=== PATIENT | female | born 1950 | race Caucasian/White ===

== ENCOUNTER → 2016-09-15 | Outpatient (CLI) | payer BC ==
--- NOTE | 2016-09-16 11:11 | MM ---
Reason for exam: screening (asymptomatic). Last mammogram was performed 1 year and 3 months ago. History: Patient is postmenopausal. Right Mammotome Panel of the right breast, December 02, 2004. Physical Findings: A clinical breast exam by your physician is recommended on an annual basis and results should be correlated with mammographic findings. MG 3D Screening Mammo W/Cad Bilateral CC and MLO view(s) were taken. Prior study comparison: June 06, 2015, bilateral MG 3d screening mammo w/cad. May 30, 2013, bilateral digital screening mammo w/CAD. April 20, 2012, bilateral digital screening mammo w/CAD. There are scattered fibroglandular densities. Finding: There are a few typically benign round calcifications in the left breast. There is a chronic nodularity in the right breast. There is no discrete abnormality. ASSESSMENT: Benign, BI-RAD 2 RECOMMENDATION: Routine screening mammogram of both breasts in 1 year.
== END | disposition home or self-care (01) ==
LOC: RADMAMWWP 13:17
PROVIDERS: ATTEND Obstetrics & Gynecology
DX: Z12.31 Encounter for screening mammogram for malignant neoplasm of breast (principal)
CPT/HCPCS: 77063; G0202

== ENCOUNTER → 2017-02-12 | Outpatient (CLI) | payer BC ==
--- NOTE | 2017-02-12 15:16 | PN ---
PROGRESS NOTE DATE OF SERVICE: 02/12/2017 A 66-year-old lady has been followed in [facility] Center for treatment of obstructive sleep apnea-hypopnea syndrome. The patient continued to use her CPAP equipment successfully without significant problems. No snoring with the machine. She is receiving show supplies. [place] Sleepiness Scale today is 10. Sometimes cramps in her legs during the sleep. She has taken medication for that. I checked her CPAP unit. CPAP pressure is 8 cm of water. Ramp 15 minutes. Usage is every night for more than 4 hours, average 8.2 hours. Leak is only 6 L/minute which is normal range. Apnea-hypopnea index 4 which is normal range. MEDICATIONS: Triamterene, hydrochlorothiazide, gabapentin, baby aspirin, iron supplement, calcium supplement, vitamin D3, potassium supplement, tizanidine at bedtime for muscle problems. PHYSICAL EXAM: During physical exam, the patient is in no distress. BP 122/72, HR 60, RR 16, height 5 feet 7 inches, weight 176, BMI 27.5, temperature 97.8, oxygen saturation room air 98%. HEENT: PERRLA, EOMI. Evaluation of oropharynx showed extremely low position of soft palate. NECK: Supple. No JVD. Thyroid is not palpable. LUNGS: Clear to percussion and to auscultation. Good air exchange. No wheezing or rhonchi. HEART: S1, S2 regular. No murmurs, gallops or rubs. ABDOMEN: Soft and nontender. Bowel sounds are present. No organomegaly appreciated. EXTREMITIES: No cyanosis or clubbing. MOTIVATIONAL SPEAKER: Awake, alert and oriented x3. Cranial nerves II through VII intact. There is no fasciculation or atrophy noted. No focal deficits observed. IMPRESSION: 1. Moderate obstructive sleep apnea-hypopnea syndrome on control with CPAP at 8 cm of water. Patient demonstrated 100% compliance with treatment benefitting from treatment. 2. Hypertension. 3. Back problem. 4. Static nerve problems. 5. Some muscle cramps during the night on treatment with tizanidine. PLAN: 1. Continue treatment with CPAP every night for the whole night. 2. Watching weight. 3. Sleep hygiene with regular time in bed for at least 8 hours. 4. No driving in sleepiness. 5. We will continue to maintain prescriptions for all necessary supplies including mask, tube, filters. 6. Follow-up visit in 1 year or earlier if patient has any problems. Thank you very much for allowing me to participate in management of your patient. Sincerely, Heraclio Pink MD, PhD, FAASM Diplomat of [place] Board of Sleep Medicine, Sleep Medicine Board by [place] Board of Medical Specialties [place] Board of Internal Medicine Night Court Magistrate of [facility] [place] MMODL / IJN: [id number] /
== END | disposition home or self-care (01) ==
LOC: SLEEP 13:41
PROVIDERS: ATTEND Internal Medicine
DX: G47.33 Obstructive sleep apnea (adult) (pediatric) (principal); I10 Essential (primary) hypertension

== ENCOUNTER → 2017-09-17 | Outpatient (CLI) | payer BC ==
--- NOTE | 2017-09-17 15:34 | PN ---
PROGRESS NOTE DATE OF SERVICE: 66-year-old lady who has been followed in Sleep Center for treatment of obstructive sleep apnea-hypopnea syndrome. The patient continued to use her CPAP equipment every night without any significant problems. She working information about new usage of the machine on the telephone. [place] Sleepiness Scale today is 12. I checked her CPAP unit. CPAP pressure is 8 cm of water. For the last 6 months, usage is 100% of the time, 180/180 nights for more than 4 hours with average usage is 7.8 hours. Leak is 10 L/minute which is normal. Apnea-hypopnea index reading for the last 6 months 3.8. The patient's weight about 10 pounds down comparing with her weight during the last visit. MEDICATIONS: Triamterene, hydrochlorothiazide, gabapentin, baby aspirin, iron supplement, calcium supplement, vitamin D3, potassium supplement. REVIEW OF SYSTEMS: The patient does not offer any physical complaints. The patient denies any rashes or other skin problems. The patient does not report any joint pain, swelling, or restriction of movement. The patient denies any headaches, any visual problems, hearing loss, sore throat. Denies any pain on breathing, shortness of breath, cough, wheezing, hemoptysis, night sweats. The patient also denies chest pain or distress, palpitations, dyspnea, orthopnea, edema, history of hypertension, history of myocardial infarction. Denies nausea, vomiting, diarrhea, hematemesis, and melena. Denies hemorrhoids or ulcers. Denies any genitourinary problems. Does not report any history of seizures. PHYSICAL EXAMINATION: Patient in no distress. BP 148/81, HR 56, R 16. Weight around 165 pounds. Temperature 97.2, oxygen saturation on room air 97%. Oropharynx moderately low position of soft palate. Lungs Clear to auscultation bilaterally. Heart S1, S2 can be heard, no gallops, rubs, or murmurs. Abdomen: Soft, nontender, no organomegaly, bowel sounds are heard in all four quadrants. Extremities No cyanosis, clubbing, or edema, peripheral pulses are palpable. Cranial Nerves II to XII are intact. GAS APPLIANCE ADJUSTER There are no gross sensory or motor deficits, DTRS 2+ bilaterally. Musculoskeletal Muscle strength is symmetrical. IMPRESSION: 1. Obstructive sleep apnea-hypopnea syndrome, most on control with CPAP at 8 cm of water patient demonstrated 100% compliance with treatment benefitting from treatment. 2. Hypertension. 3. Back problems. 4. History of some muscle cramps during the sleep. The patient still occasionally has muscle cramps in the legs during the sleep. 5. History of sciatic nerve. 6. History of herniated disc in the low back. PLAN: 1. Patient will continue to use CPAP equipment every night for the whole night. 2. Prescription for all necessary CPAP supplies including mask, tube, filters. 3. Continue losing weight. 4. Sleep hygiene with regular time in bed for at least 8 hours. 5. No driving if feeling sleepiness. 6. Followup visit in 1 year. Thank you very much for allowing me to participate in management of your patient. Sincerely, Heraclio Pink MD, PhD, FAASM Diplomat of [place] [employer] Special[employer] [place] [employer] Medicine Clothing Supervisor of [facility] [place] MMODL / KASHN: [id number] /
== END | disposition home or self-care (01) ==
LOC: SLEEP 14:00
PROVIDERS: ATTEND Internal Medicine
DX: G47.33 Obstructive sleep apnea (adult) (pediatric) (principal); R25.2 Cramp and spasm; I10 Essential (primary) hypertension; Z99.89 Dependence on other enabling machines and devices; Z79.82 Long term (current) use of aspirin; Z79.899 Other long term (current) drug therapy; Z87.39 Personal history of other diseases of the musculoskeletal system and connective tissue

== ENCOUNTER → 2017-10-27 | Outpatient (CLI) | payer BC ==
--- NOTE | 2017-10-27 14:49 | BD ---
EXAMINATION TYPE: Axial Bone Density DATE OF EXAM: 10/27/2017 COMPARISON: NONE CLINICAL HISTORY: Postmenopausal female Height: 5 FT 6 1/4 IN Weight: 161 FRAX RISK QUESTIONS: Family History (Parent hip fracture): YES Secondary Osteoporosis: 3. Menopause before 45: YES RISK FACTORS HISTORY OF: Family History of Osteoporosis: YES Active: YES Postmenopausal woman: AGE 42 MEDICATIONS: Additional Medications: GABAPENTIN, BLOOD PRESSURE MEDS, Additional History: PT HAS HAD EPIDURAL INJ IN BACK EXAM MEASUREMENTS: Bone mineral densitometry was performed using the farmhopping System. Bone mineral density as measured about the Lumbar spine is: ----- L1-L4(G/cm2): 1.400 T Score Values are as follows: ----- L2: 0.2 ----- L3: 1.8 ----- L4: 4.9 ----- L1-L4: 1.8 Bone mineral density has: INCREASED 5.9 SINCE 2016 Bone mineral density about the R hip (g/cm2): 1.193 Bone mineral density about the L hip (g/cm2): 1.131 T Score values are as follows: -----R Neck: 1.1 -----L Neck: 0.7 -----R Total: 1.4 -----L Total: 1.4 Bone mineral density has: DECREASED -0.7 SINCE 2015 IMPRESSION: Normal (Values between +1 and -1 indicate normal bone mass). Consider repeating this study in 5 year s or sooner if there is some new clinical indication. NOTE: T-SCORE=SD OF THE YOUNG ADULT MEAN.
--- NOTE | 2017-10-29 12:02 | MM ---
Reason for exam: screening (asymptomatic). Last mammogram was performed 1 year and 1 month ago. History: Patient is postmenopausal. Right Mammotome Panel of the right breast, December 02, 2004. Physical Findings: A clinical breast exam by your physician is recommended on an annual basis and results should be correlated with mammographic findings. MG 3D Screening Mammo W/Cad Bilateral CC and MLO view(s) were taken. Prior study comparison: September 15, 2016, bilateral MG 3d screening mammo w/cad. June 06, 2015, bilateral MG 3d screening mammo w/cad. There are scattered fibroglandular densities. Asymmetric breast tissue in the right breast is stable. There is no discrete abnormality. ASSESSMENT: Negative, BI-RAD 1 RECOMMENDATION: Routine screening mammogram of both breasts in 1 year.
== END | disposition home or self-care (01) ==
LOC: RADMAMWWP 12:55
PROVIDERS: ATTEND Internal Medicine Geriatric Medicine
DX: Z12.31 Encounter for screening mammogram for malignant neoplasm of breast (principal); M81.0 Age-related osteoporosis without current pathological fracture
CPT/HCPCS: 77063; 77067; 77080

== ENCOUNTER → 2018-02-11 | Outpatient (CLI) | payer BC ==
--- NOTE | 2018-02-11 16:13 | PN ---
PROGRESS NOTE DATE OF SERVICE: 02/11/2018 This patient is a 67-year-old lady who has been followed in the sleep center for treatment of obstructive sleep apnea-hypopnea syndrome. Patient successfully continues to use her CPAP equipment. Sometimes she feels there is some leak from her nasal mask; otherwise feels okay. [place] Sleepiness Scale today is 6, which is normal. I checked her CPAP unit. CPAP pressure is 8 cm of water. Usage is in acceptable range, around 21 out of 30 nights for more than 4 hours for the last month and 79 out of 90 days for the last 3 months. Average usage for the last 3 months 7.1 hours. Leak is 70 L/minute, which is acceptable. Apnea-hypopnea index in the range of 3 for the last 3 months, which is normal. MEDICATIONS: 1. Triamterene. 2. Hydrochlorothiazide. 3. Gabapentin. 4. Baby aspirin. 5. Iron supplement. 6. Calcium supplement. 7. Vitamin D3. 8. Potassium supplement. PHYSICAL EXAMINATION: GENERAL: A pleasant lady in no distress. VITAL SIGNS: BP 124/65, HR 55, RR 12, height 5 feet 6-1/2 inches, weight 162.6, body mass index 25.7, temperature 98.1, oxygen saturation at room air 99%. HEENT: PERRLA, EOMI. Evaluation of oropharynx showed tongue protrudes midline; low position of soft palate. NECK: Supple. No JVD. Thyroid is not palpable. LUNGS: Clear to percussion and to auscultation. Good air exchange. No wheezing or rhonchi. HEART: S1, S2 regular. No murmurs, gallops or rubs. ABDOMEN: Soft and nontender. Bowel sounds are present. No organomegaly appreciated. EXTREMITIES : No clubbing or cyanosis. GAS METER MECHANIC: Awake, alert, and oriented X3. Cranial nerves 2 to 7 intact. There is no fasciculation or atrophy. noted. No focal deficits observed. IMPRESSION: 1. Obstructive sleep apnea-hypopnea syndrome. Patient demonstrated great compliance with treatment, benefitting from treatment. 2. Hypertension. 3. Back problems. 4. History of some muscle cramps; occasionally still has it. 5. History of sciatic nerve problem. 6. History of herniated disc in the low back. PLAN: 1. Patient will continue to use her CPAP equipment every night for the whole night with the same level of pressure. 2. We will maintain all necessary CPAP prescriptions, including nasal mask, tube, filters. 3. No driving if feeling any sleepiness. 4. Sleep hygiene with regular time in bed for at least 8 hours. 5. We will consider using a different nasal mask. 6. Follow-up visit in one year, earlier if patient has any problems. Thank you very much for allowing me to participate in the management of your patient. Sincerely, Sincerely, Heraclio Pink MD, PhD, FAASM Diplomat of [place] [employer] Specialties [place] Board of Internal Medicine Racing Car Driver of [facility] [place] MMODL / IJN: [id number] /
== END | disposition home or self-care (01) ==
LOC: SLEEP 13:30
PROVIDERS: ATTEND Internal Medicine
DX: G47.33 Obstructive sleep apnea (adult) (pediatric) (principal); I10 Essential (primary) hypertension; Z79.82 Long term (current) use of aspirin; Z79.899 Other long term (current) drug therapy; Z87.39 Personal history of other diseases of the musculoskeletal system and connective tissue

== ENCOUNTER → 2019-01-20 | Outpatient (CLI) | payer MEDICARE ==
--- NOTE | 2019-01-24 08:01 | MM ---
Reason for exam: screening (asymptomatic). Last mammogram was performed 1 year and 3 months ago. History: Patient is postmenopausal. MG stereo VAD BX RT of the right breast, December 02, 2004. MG discontinued stereo core RT of the right breast, December 02, 2004. Physical Findings: A clinical breast exam by your physician is recommended on an annual basis and results should be correlated with mammographic findings. MG 3D Screening Mammo W/Cad Bilateral CC and MLO view(s) were taken. Prior study comparison: October 27, 2017, bilateral MG 3d screening mammo w/cad. September 15, 2016, bilateral MG 3d screening mammo w/cad. There are scattered fibroglandular densities. There is a stable right middle depth lowr outer quadrant mass back to 2016. No suspicious abnormality. No significant changes when compared with prior studies. ASSESSMENT: Benign, BI-RAD 2 RECOMMENDATION: Routine screening mammogram of both breasts in 1 year.
== END | disposition home or self-care (01) ==
LOC: RADMAMWWP 08:16
PROVIDERS: ATTEND Internal Medicine Geriatric Medicine
DX: Z12.31 Encounter for screening mammogram for malignant neoplasm of breast (principal)
CPT/HCPCS: 77063; 77067

== ENCOUNTER → 2019-02-07 | Outpatient (CLI) | payer MEDICARE ==
[2019-02-07 15:33] LABS: HCT 39.5 % (34.0-46.0); HGB 12.7 gm/dL (11.4-16.0); MCH 29.8 pg (25.0-35.0); MCV 93.2 fL (80.0-100.0); Mean Platelet Volume 6.4; Platelet Count 326 k/uL (150-450); RBC 4.24 m/uL (3.80-5.40); RDW 12.9 % (11.5-15.5)
[2019-02-07 15:39] LABS: INR 0.9 (<1.2); Partial Thromboplastin Time 24.3 sec (22.0-30.0); Prothrombin Time 10.1 sec (9.0-12.0)
[2019-02-07 15:43] LABS: Albumin 4.6 g/dL (3.5-5.0); Calcium 10.2 mg/dL (8.4-10.2); Potassium 4.5 mmol/L (3.5-5.1); Total Bilirubin 0.4 mg/dL (0.2-1.3); Total Protein 7.8 g/dL (6.3-8.2)
[2019-02-07 16:07] LABS: Amorphous Sediment,Urine Rare /hpf; Appearance,Urine Clear (Clear); Bacteria,Urine Rare /hpf; Bilirubin,Urine Negative (Negative); Blood,Urine Moderate (Negative); Color,Urine Light Yellow; Glucose,Urine (UA) Negative (Negative); Ketones,Urine Negative (Negative); Leukocyte Esterase,Urine Trace (Negative); Mucus,Urine Occasional /hpf; Nitrite,Urine Negative (Negative); PH, Urine 7.5 (5.0-8.0); Protein,Urine Negative (Negative); RBC,Urine 62 /hpf (0-5); Specific Gravity,Urine 1.007 (1.001-1.035); Squamous Epithelial Cell,Urine 1 /hpf (0-4); Urobilinogen,Urine <2.0 mg/dL (<2.0); WBC,Urine 3 /hpf (0-5)
== END | disposition home or self-care (01) ==
LOC: LABPAT 14:36
PROVIDERS: ATTEND Orthopaedic Surgery
DX: Z01.812 Encounter for preprocedural laboratory examination (principal); M17.12 Unilateral primary osteoarthritis, left knee
CPT/HCPCS: 80053; 81001; 85027; 85610; 85730; 87070

== ENCOUNTER → 2019-02-08 | Outpatient (CLI) | payer MEDICARE ==
--- NOTE | 2019-02-08 15:58 | US ---
EXAMINATION TYPE: US kidneys/renal and bladder DATE OF EXAM: 02/08/2019 COMPARISON: NONE CLINICAL HISTORY: R31.9 HEMATURIA. EXAM MEASUREMENTS: Right Kidney: 11.5 x 4.9 x 5.4 cm Left Kidney: 12.1 x 5.3 x 5.2 cm Right Kidney: no obvious masses or hydronephrosis Left Kidney: no obvious mass or hydronephrosis Bladder: wnl Bilateral Jets seen: No There is no evidence for hydronephrosis at this point in time. No nephrolithiasis is seen. No kartik s are identified. The urinary bladder is anechoic. Bilateral ureteral jets are not seen. IMPRESSION: No hydronephrosis, nephrolithiasis, nor suspicious renal mass.
== END | disposition home or self-care (01) ==
LOC: RADUSWWP 14:07
PROVIDERS: ATTEND Internal Medicine Geriatric Medicine
DX: R31.9 Hematuria, unspecified (principal)
CPT/HCPCS: 76770

== ENCOUNTER → 2019-02-10 | Outpatient (CLI) | payer MEDICARE ==
--- NOTE | 2019-02-10 15:06 | SFUN ---
SLEEP CENTER FOLLOW UP NOTE DATE OF SERVICE: 02/10/2019 A 68-year-old lady who has been followed in the Sleep Center for treatment of obstructive sleep apnea-hypopnea syndrome. Patient continued to use her CPAP equipment every night for the whole night. Recently, sometimes wakes up in the middle of the night and has difficulties to fall asleep again. I checked her CPAP unit, pressure is 8 cm of water. Patient is using equipment every night, average usage 6.9 hours per night. Leak 8 L/minutes which is normal. Apnea- hypopnea index is 2.3, which is absolutely normal range. [place] Sleepiness Scale today is 9. MEDICATIONS: Cassaidine, [QAMARKER], hydrochlorothiazide, gabapentin, iron supplement, calcium supplement, vitamin D3, potassium supplement. PHYSICAL EXAM: Patient in no distress. BP 122/77, HR 62, RR 16, height 5, 6-1/2, weight 162, body mass index 25.7, temperature 98.0, oxygen saturation at room air 99%. OROPHARYNX: Low position of soft palate, Mallampati 3. Neck Supple, no JVD. Thyroid is not palpable. LUNGS Clear to percussion and to auscultation. Good air exchange. No wheezing or rhonchi. HEART S1, S2 regular. No murmurs, gallops, or rubs. ABDOMEN Soft and nontender. Bowel sounds are present. No organomegaly appreciated. EXTREMITIES No clubbing or cyanosis. REPORT MANAGER Awake, alert, and oriented X3. Cranial nerves 2 to 7 intact. There is no fasciculation or atrophy. noted. No focal deficits observed. IMPRESSION: 1. Obstructive sleep apnea-hypopnea syndrome. Patient demonstrated 100% compliance with treatment benefitting from treatment. 2. Psychophysiological insomnia. 3. Hypertension. 4. Back problems. 5. Sometimes episodes of muscle cramps. 6. History of sciatic nerve problems. 7. History of herniated disk in the low back. 8. Status post left knee arthroscopic surgery. The patient is preparing for total left knee replacement. PLAN: 1. Patient will continue to use CPAP equipment every night for the whole night. 2. I discussed with the patient usage of some psychological techniques for treatment of insomnia including stimulus control, paradoxical intention, no watching clock. 3. Watching weight. 4. No driving if feeling sleepiness. 5. I will maintain all necessary prescriptions for CPAP supplies including mask, tube, filters. Thank you very much for allowing me to participate in the management of your patient. Sincerely, Heraclio Pink MD, PhD, FAASM Diplomat of [place] [employer] Special[employer] [place] [employer] Coroner'S Juror of [facility] [place] [email or web address] / ANNY: [id number] /
== END | disposition home or self-care (01) ==
LOC: SLEEP 13:19
PROVIDERS: ATTEND Internal Medicine
DX: G47.33 Obstructive sleep apnea (adult) (pediatric) (principal); I10 Essential (primary) hypertension; M53.9 Dorsopathy, unspecified; R25.2 Cramp and spasm; Z86.69 Personal history of other diseases of the nervous system and sense organs; Z87.39 Personal history of other diseases of the musculoskeletal system and connective tissue; Z96.652 Presence of left artificial knee joint; Z99.89 Dependence on other enabling machines and devices

== ENCOUNTER 2019-02-21 06:17 | Inpatient (IN) | payer BC, MEDICARE ==
[~2019-02-21 06:17] MED LIST: LIDOCAINE 1% 20 ML VIAL (10MG/ML) FOR IV START INTRADERMA PRN; MIDAZOLAM 2 MG/2 ML VIAL IV PRN; fentaNYL (PF) 50 MCG/ML 2 ML AMP IV PRN
[2019-02-21] MEDS: LACTATED RINGERS 1,000 ML IV SCH ×5 (06:57→20:24)
[2019-02-21] MEDS ORDERED: LIDOCAINE 1% 20 ML VIAL (10MG/ML) FOR IV START INTRADERMA ONE (06:57)
[2019-02-21] MEDS ORDERED: MELOXICAM 7.5 MG TAB PO ONE (07:00)
[2019-02-21] MEDS ORDERED: ONDANSETRON 4 MG/2 ML VIAL IVP ONE (07:00)
[2019-02-21] MEDS ORDERED: TRANEXAMIC ACID 1,000 MG in SODIUM CHLORIDE 0.9% 100 ML IVPB ONE ×4 (07:00)
[2019-02-21] MEDS ORDERED: MIDAZOLAM PF (FBP) 2 MG/2 ML VIAL IV ONE (07:11)
[2019-02-21] MEDS ORDERED: SODIUM CHLORIDE 0.9% 100 ML BAG ONE (07:47)
[2019-02-21] MEDS ORDERED: MIDAZOLAM 2 MG/2 ML VIAL ONE (07:47)
[2019-02-21] MEDS ORDERED: fentaNYL (PF) 50 MCG/ML 2 ML AMP ONE (07:47)
[2019-02-21] MEDS ORDERED: TRANEXAMIC ACID 1,000 MG/10 ML VIAL ONE (07:47)
[2019-02-21] MEDS ORDERED: ePHEDrine SULFATE/0.9% NACL/PF 50 MG/5 ML SYRINGE IV ONE (07:47)
[2019-02-21] MEDS ORDERED: PROPOFOL 10 MG/ML 20 ML VIAL IV ONE (07:47)
[2019-02-21] MEDS: ROPIVACAINE 246.25 MG, EPINEPHrine 0.5 MG, KETOROLAC 30 MG, cloNIDine HCL/PF 80 MCG, WA... MISCELLANE ONE ×10 (08:24→09:12)
[2019-02-21] MEDS ORDERED: ROPIVACAINE 0.2%-NS ON-Q PUMP 1,090 MG, EMPTY PAIN BALL 1 EACH MISCELLANE PRN (08:40)
--- NOTE | 2019-02-21 08:41 | P.ANPRN ---
Procedure Note - Anesthesia - Nerve Block Performed Left Adductor Canal Infusion Time Out Performed: Yes Date of Procedure: 02/21/19 Procedure Start Time: :12 Procedure Stop Time: : Location of Patient Procedure: PreOp Indication: Acute Post-Operative Pain, Requested by Surgeon Sedation Type: Sedate with meaningful contact maintained Preparation: Sterile Prep, Sterile Dressing Position: Supine Catheter: Indwelling Needle Types: Pajunk Needle Gauge: 21 Ultrasound used to visualize needle placement: Yes Ultrasound used to observe medication spread: Yes Blood Aspirated: No Pain Paresthesia on Injection Noted: No Resistance on Injection: Normal Image Stored and Saved: Yes Events: Uneventful and Well Tolerated (ropi .5% 20cc)
--- NOTE | 2019-02-21 09:44 | P.OP ---
Date of Procedure: 02/21/19 Procedure(s) Performed: PREOPERATIVE DIAGNOSIS: Left knee severe osteoarthritis with genu varum POSTOPERATIVE DIAGNOSIS: Left knee severe osteoarthritis with genu varum OPERATION: Left knee cemented total replacement arthroplasty. ANESTHESIA: Spinal ESTIMATED BLOOD LOSS: 100 ml. DEPUTY [place] [employer]: Beata Art PA-C (assistance with: patient positioning, retraction, exposure, hemostasis, leg positioning, implantation, irrigation, closure, dressing) COMPLICATIONS: None apparent. COMPONENTS IMPLANTED: Journey II total knee system from [employer] INDICATIONS: Melvina is a 68 year old female with a history of left knee osteoarthritis. She has previously undergone arthroscopic partial meniscectomy and chondroplasty with no significant benefit. The patient's knee is end-stage, and other conservative management has failed. The operation of knee replacement has been discussed at length in the office, as well as potential risks and complications. These are inclusive of, but not limited to: bleeding, infection, scarring, discomfort, blood vessel and nerve damage, need for further surgery, failure to relieve symptoms, persistence, recurrence, or worsening of problems, loosening, dislocation, wear, blood clot, pulmonary embolism, , gait dysfunction, stiffness, and other risks as discussed in the office. The patient elects to proceed and the consent form has been signed. PROCEDURE: The patient was taken to the operating room and positioned on the operating room table in the supine position. Anesthesia was initiated. Care was taken to make sure that all pressure points were adequately padded. The operative lower extremity was prepped and draped in the usual aseptic fashion using ChloraPrep. Ioban drape was used for the case and the patient received intravenous antibiotics within one hour of the incision. A pneumotourniquet and leg portillo were used for the case. The limb was exsanguinated with an Esmarch bandage and the tourniquet was inflated to 350 mmHg. Time-out was called confirming the patient's identity, side, procedure and administration of antibiotics and tranexamic acid. The incision was then created midline directly over the left knee, carried down through skin and into the subcutaneous tissues and down to fascia. Full thickness subcutaneous medial flap was developed. Medial parapatellar arthrotomy was performed and the interior of the knee was inspected. There was end-stage osteoarthritis of the knee with a mild to moderate genu varum type deformity. The fat pad was excised and proximal medial release on the tibia was completed using meticulous dissection and a curved osteotome. The anterior cruciate ligament was taken down. Note was made of significant attrition of the anterior and significant degenerative appearance of the cruciate ligaments. The exposure was excellent. The knee was flexed 90 degrees and the patella was everted. The [employer] pre- made distal cutting block was attached and pinned into position. The planned cut was analyzed visually and found to be satisfactory without the need for any adjustment. The oscillating saw was then used to make the distal femoral cut. This cut was confirmed to be flat with the flat end of an osteotome. The retractors were placed around the tibia and the tibial surface was addressed. The [employer] pre-made guide was placed onto the exposed tibial surface and pinned into position to david the rotational alignment. The alignment of the guide was checked for depth of plannned resection, slope, and varus valgus. Guide was confirmed to be in good position and the tibial cut was then created with protection of the posterior neurovascular structures and the collateral ligaments. The tibial cut surface was removed and sized. Femoral sizing was then accomplished using posterior referencing. Care was taken to analyze the posterior condyles for signs of deficiency or severe wear, and adjustments to the guide were made, as appropriate. 3 degree external rotation pins were placed relative to Luquillo's line. The cutting jig for the femur was applied to these pins. The planned cuts were further analyzed prior to performing them with the oscillating saw. No femoral notching was produced. Bone fragments were removed and the cut surfaces were finished, as necessary, with a reciprocating saw. Spacer block technique was then used to confirm that the flexion and extension gaps were equal. Soft tissue releases and adjustment of the tibial and/or femoral cuts were made, as necessary, until the gaps were equal. This included release of the posterior cruciate ligament, which was excessively tight in this patient. The femur was then further finished for a posterior cruciate ligament substituting component. Patellar resurfacing was performed using a reamer. The size of the required patellar component was estimated and the patellar surface was then reamed down to a residual thickness which would recreate the tribal thickness with the component. The exact placement of the patellar component was adjusted for position based on preoperative x-rays and intraoperative findings. Prior to placing trial components, anesthetic solution consisting of ropivicaine with epinephrine, ketorolac, and clonidine was injected carefully and methodically in a grid pattern using aspiration technique into the soft tissue around the knee circumferentially, starting with the deeper tissues first and progressing to fascia, and then finally the skin/subcutaneous tissue. Particular care was taken when injecting the posterior capsule. The trial components were inserted. The tibial tray was allowed to self center and the patella was noted to track very well. The position of the tibial component was marked and noted to be nearly exactly aligned with the pre-drilled holes from the [employer] guide. The tibia was then finished for a stemmed tibial component. Cement was mixed on the back table and applied to the final components. Trial components were removed and the cut surfaces of the bone were pulse lavaged thoroughly and dried. Cement was then applied to the tibial surface and pressurized into the surface using finger pressurization technique. The tibial component was then applied and excess cement was removed after it was impacted securely and noted to be flush with the cut surface. In similar fashion, the cement was applied to the cut femoral surface, pressurized in using finger pressurization and the component was impacted into place. Excess cement was removed. The polyethylene spacer was then implanted and locked into position. The patellar component was then applied in similar technique and a patellar clamp was used to hold the patella in place as the cement hardened. Once the cement had fully hardened, the knee was reinspected. Any other cement extrusion was removed and final kinematic testing showed range of motion from 0 to 130 degrees with excellent stability, both medially and laterally and appropriate alignment of the leg. Patellar tracking was excellent. The knee was then thoroughly pulse lavaged with normal saline. The tourniquet was deflated and hemostasis was obtained with electrocautery and IV tranexamic acid, 1 g given at the start of the operation and 1 g at the start of closure. Closure was with #2 Ethibond in the fascia/capsule and supplemented with #2 Quill, 2-0 Vicryl suture was used for the subcutaneous tissues and 3-0 Quill for the skin. Dermabond/Steri-Strips were then applied. A lightly compressive dressing was applied using Webril and an Jens wrap. The patient was then transferred to stretcher and taken to the recovery room in stable condition. Sponge and needle counts were correct.
[2019-02-21] MEDS ORDERED: BISACODYL 10 MG SUPP RECTAL PRN (09:54)
[2019-02-21] MEDS ORDERED: HYDROmorphone 0.5 MG/0.5 ML SYRINGE IVP PRN ×3 (09:54)
[2019-02-21] MEDS ORDERED: MAGNESIUM HYDROXIDE 2,400 MG/10 ML CUP PO PRN (09:54)
[2019-02-21] MEDS ORDERED: NALOXONE 0.4 MG/ML 1 ML VIAL IV PRN (09:54)
[2019-02-21] MEDS ORDERED: NA PHOS,M-B/NA PHOS,DI-BA 133 ML ENEMA RECTAL PRN (09:54)
[2019-02-21] MEDS ORDERED: LACTATED RINGERS 1,000 ML IV ONE ×2 (10:14)
--- NOTE | 2019-02-21 10:45 | XR ---
EXAMINATION TYPE: XR knee limited LT DATE OF EXAM: 02/21/2019 CLINICAL HISTORY: Left knee pain and arthritis status post total knee replacement. TECHNIQUE: Portable AP and crosstable lateral views of the left knee are obtained immediately postop eratively. COMPARISON: None FINDINGS: Metallic hardware from total left knee arthroplasty is seen and appears satisfactory in al ignment and position. There is evidence of recent surgery with diffuse subcutaneous gas and soft tis preet swelling noted. IMPRESSION: METALLIC HARDWARE FROM TOTAL LEFT KNEE ARTHROPLASTY IS SATISFACTORY IN ALIGNMENT.
[2019-02-21 12:03] VITALS: BMI 26.2
--- NOTE | 2019-02-21 12:52 | P.CONS ---
History of Present Illness - Reason for Consult Consult date: 02/21/19 Medical management - History of Present Illness This is a 68-year-old female patient of Dr. Carrion with past medical history of hypertension and obstructive sleep apnea on CPAP. Patient has been brought into the hospital under the care of Dr. Severino is post left total knee arthroplasty. Patient is seen in the immediate postop period. Pain is currently controlled. Q-pump is in place for pain management. Blood pressure is on the low side and Dyazide will be held for today. This may be resumed tomorrow depending on blood pressures. Patient denies any lightheadedness, dizziness, chest pain or shortness of breath. No nausea or vomiting. Review of Systems Constitutional: Reports lethargy, Denies chills, Denies fatigue, Denies fever, Denies poor appetite, Denies weakness Eyes: denies blurred vision, denies pain Ears, nose, mouth and throat: Denies headache, Denies nasal congestion, Denies nasal discharge, Denies sore throat, Denies vertigo Cardiovascular: Denies chest pain, Denies decreased exercise tolerance, Denies dyspnea on exertion, Denies edema, Denies leg edema, Denies lightheadedness, Denies shortness of breath, Denies syncope Respiratory: Denies cough, Denies cough with sputum, Denies dyspnea, Denies excessive sputum, Denies hemoptysis, Denies home oxygen, Denies wheezing Gastrointestinal: Denies abdominal pain, Denies diarrhea, Denies loss of appetite, Denies nausea, Denies vomiting Genitourinary: Denies dysuria, Denies hematuria, Denies urgency, Denies urinary frequency Musculoskeletal: Denies frequent falls, Denies gait dysfunction, Denies muscle weakness, Denies myalgias Musculoskeletal: left: knee pain Integumentary: Reports wounds, Denies pruritus, Denies rash Neurological: Denies change in mentation, Denies change in speech, Denies numbness, Denies seizures, Denies weakness Psychiatric: Denies anxiety, Denies depression Endocrine: Denies fatigue, Denies weight change Past Medical History Past Medical History: Hypertension, Sleep Apnea/CPAP/BIPAP Additional Past Medical History / Comment(s): uses cpap machine History of Any Multi-Drug Resistant Organisms: None Reported Past Surgical History: Appendectomy, Section, Orthopedic Surgery, Tubal Ligation Additional Past Surgical History / Comment(s): cyst on lt ovary removed, bunionectomy,shoulder surgery, arthroscopy knee, epidurals,rhizotomy back, dental implants, bone graph surgery , left total knee arthroplasty Past Anesthesia/Blood Transfusion Reactions: No Reported Reaction Smoking Status: Never smoker Additional Past Alcohol Use History / Comment(s): Patient is a lifelong nonsmoker, no marijuana use, no illicit drug use. Patient drinks alcohol socially. She lives at home with her . - Past Family History Father Additional Family Medical History / Comment(s): Father at age 90 from Parkinson's and Alzheimer's dementia. Sister(s) Family Medical History: Cancer Additional Family Medical History / Comment(s): lymphoma. Patient has 3 sisters and one has diabetes. Mother Additional Family Medical History / Comment(s): Mother at age 91 from Alzheimer's dementia. Brother(s) Additional Family Medical History / Comment(s): Patient has 2 brothers and one has diabetes. Patient has 2 children with no major medical problems. Medications and Allergies Home Medications Medication Instructions Recorded Confirmed Type Calcium Carbonate [Calcium] 600 mg PO DAILY 02/11/19 02/21/19 History Chlorhexidine Gluconate [Peridex] 15 ml PO BID 02/11/19 02/21/19 History Cholecalciferol (Vitamin D3) 2,000 unit PO DAILY 02/11/19 02/21/19 History [Vitamin D3] Diclofenac Sodium [Pennsaid] 1 spray TOPICAL DAILY 02/11/19 02/21/19 History Ferrous Sulfate [Feosol] 325 mg PO DAILY 02/11/19 02/21/19 History Gabapentin [Neurontin] 1 - 2 mg PO TID 02/11/19 02/21/19 History Multivitamins, Thera [Multivitamin 1 tab PO DAILY 02/11/19 02/21/19 History (formulary)] Potassium 99 mg PO DAILY 02/11/19 02/21/19 History Triamcinolone 0.1% Cream [Kenalog 1 applic TOPICAL DAILY 02/11/19 02/21/19 History 0.1% Cream] Triamterene-Hctz 37.5-25Mg 1 cap PO DAILY 02/11/19 02/21/19 History [Dyazide 37.5-25 Capsule] Turmeric Root Extract [Turmeric] 500 mg PO DAILY 02/11/19 02/21/19 History tiZANidine [Zanaflex] 1 - 2 tab PO HS 02/11/19 02/21/19 History Aspirin 325 mg PO BID #1 tab 02/21/19 Rx HYDROcodone/APAP 7.5-325MG [[place] 1 - 2 tab PO Q4-6H PRN #40 tab 02/21/19 Rx 7.5-325] Sennosides-Docusate Sodium 1 tab PO BID #60 tablet 02/21/19 Rx [Senokot-S] Allergies Allergy/AdvReac Type Severity Reaction Status Date / Time No Known Allergies Allergy Verified 02/21/19 06:48 Physical Exam Vitals: Vital Signs Temp Pulse Resp BP Pulse Ox 02/21/19 11:10 98.2 F 68 16 101/65 93 L 02/21/19 10:35 64 16 104/55 94 L 02/21/19 10:20 64 16 107/57 93 L 02/21/19 10:05 68 16 109/59 94 L 02/21/19 09:50 97.4 F L 70 12 118/59 95 02/21/19 06:36 97.9 F 57 L 16 144/66 97 Intake and Output 02/20/19 02/21/19 02/21/19 22:59 06:59 14:59 Intake Total 400 895 Output Total 100 Balance 400 795 Intake: IV 400 895 Output: Estimated Blood Loss 100 Gen: This is a 68-year-old female. Patient is in bed and appears to be comfortable and in no acute distress. HEENT: Head is atraumatic, normocephalic. Pupils equal, round. Sclerae is anicteric. NECK: Supple. No JVD. No lymphadenopathy. No thyromegaly. LUNGS: Clear to auscultation. No wheezes or rhonchi. No intercostal ret ractions. HEART: Regular rate and rhythm. No murmur. ABDOMEN: Soft. Bowel sounds are present. No masses. No tenderness. EXTREMITIES: No pedal edema. No calf tenderness. Large dressing in place to the left knee. NEUROLOGICAL: Patient is awake, alert and oriented x3. Cranial nerves 2 through 12 are grossly intact. Assessment and Plan Plan: 1. Osteoarthritis status post left knee arthroplasty, postop day #0. Continue current pain management, incentive spirometry to reduce incidence of atelectasis and hospital-acquired pneumonia. DVT prophylaxis per orthopedics. 2. Hypertension. Blood pressure is currently on the lower side and Dyazide will be held. 3. Obstructive sleep apnea on CPAP at bedtime. 4. GI prophylaxis. Pepcid. Discharge plan: home Impression and plan of care have been directed as dictated by the signing physician. Melvina Baldwin nurse practitioner acting as scribe for signing physician.
[2019-02-21] MEDS ORDERED: HYDROcodone/APAP 5-325MG 1 EACH TAB PO PRN ×2 (16:44)
[2019-02-21] MEDS: ASPIRIN 325 MG TAB PO SCH (20:24)
[2019-02-21] MEDS: SENNOSIDES-DOCUSATE SODIUM 1 EACH TAB PO SCH (20:24)
[2019-02-21] MEDS: GABAPENTIN 400 MG CAP PO SCH (21:12)
[2019-02-21] MEDS ORDERED: TEMAZEPAM 15 MG CAP PO PRN (22:00)
[2019-02-22 06:27] LABS: Basophils % (A) 0 %; Eosinophils # (A) 0.2 k/uL (0-0.7); Eosinophils % (A) 3 %; HCT 34.3 % (34.0-46.0); HGB 10.8 gm/dL (11.4-16.0); Lymphocytes # (A) 1.5 k/uL (1.0-4.8); Lymphocytes % (A) 20 %; MCH 30.3 pg (25.0-35.0); MCHC 31.4 g/dL (31.0-37.0); MCV 96.3 fL (80.0-100.0); Mean Platelet Volume 6.5; Monocytes # (A) 0.5 k/uL (0-1.0); Monocytes % (A) 7 %; Neutrophils # (A) 4.9 k/uL (1.3-7.7); Neutrophils % (A) 67 %; Platelet Count 240 k/uL (150-450); RBC 3.56 m/uL (3.80-5.40); RDW 12.6 % (11.5-15.5); WBC 7.3 k/uL (3.8-10.6)
[2019-02-22] MEDS: LACTATED RINGERS 1,000 ML IV SCH ×3 (07:07→16:06)
[2019-02-22] MEDS: FERROUS SULFATE 325 MG TAB PO SCH (07:39)
[2019-02-22] MEDS: CHOLECALCIFEROL 1,000 UNIT TAB PO SCH (07:39)
[2019-02-22] MEDS: ASPIRIN 325 MG TAB PO SCH ×2 (07:40→20:52)
[2019-02-22] MEDS: MELOXICAM 7.5 MG TAB PO SCH (07:40)
[2019-02-22] MEDS: CALCIUM CARB-VIT D 500MG-200UN 1 EACH TAB PO SCH (07:40)
[2019-02-22] MEDS: MULTIVITAMINS, THERA 1 EACH TAB PO SCH (07:40)
[2019-02-22] MEDS: GABAPENTIN 400 MG CAP PO SCH ×3 (07:40→20:52)
[2019-02-22] MEDS: FAMOTIDINE 20 MG TAB PO SCH (07:40)
--- NOTE | 2019-02-22 11:03 | P.DS ---
Providers Expected date of discharge: 02/22/19 Attending physician: Ambrose Severino Consults: 02/21/19 09:54 Consult Physician Routine Consulting Provider: Bernabe Carrion Reason/Comments: Medical management Do you want consulting provider notified?: Yes Primary care physician: Bernabe Carrion - Discharge Diagnosis(es) (1) Osteoarthritis of left knee Current Visit: Yes Status: Acute (2) Status post total left knee replacement Current Visit: Yes Status: Acute Hospital Course: This is a 68-year-old female who was last seen with complaint of continued left knee pain. The patient has a known history of degenerative arthritis of the left knee and presents to discuss surgical options. After discussion and consideration the patient elects to proceed with total left knee arthroplasty. The patient is seen preoperatively by Dr. Carrion and cleared for surgery. The patient is admitted to [facility] for total left knee arthroplasty. The procedure was performed without complication or sequelae. She is doing well postoperatively. Vital signs are stable at discharge. Labs are stable at discharge. the patient is ambulating well with walker with minimal assistance. The patient is discharged to home on postop day #1 pending medical clearance. Please see orders and refer to the [facility] for accurate list of medications. Patient Condition at Discharge: Good Plan - Discharge Summary Discharge Rx Participant: No New Discharge Prescriptions: New Aspirin 325 mg PO BID #1 tab HYDROcodone/APAP 7.5-325MG [[place] 7.5-325] 1 - 2 tab PO Q4-6H PRN #40 tab PRN Reason: Pain Sennosides-Docusate Sodium [Senokot-S] 1 tab PO BID #60 tablet No Action Turmeric Root Extract [Turmeric] 500 mg PO DAILY Triamcinolone 0.1% Cream [Kenalog 0.1% Cream] 1 applic TOPICAL DAILY tiZANidine [Zanaflex] 1 - 2 tab PO HS Potassium 99 mg PO DAILY Multivitamins, Thera [Multivitamin (formulary)] 1 tab PO DAILY Gabapentin [Neurontin] 1 - 2 mg PO TID Ferrous Sulfate [Feosol] 325 mg PO DAILY Cholecalciferol (Vitamin D3) [Vitamin D3] 2,000 unit PO DAILY Calcium Carbonate [Calcium] 600 mg PO DAILY Triamterene-Hctz 37.5-25Mg [Dyazide 37.5-25 Capsule] 1 cap PO DAILY Diclofenac Sodium [Pennsaid] 1 spray TOPICAL DAILY Chlorhexidine Gluconate [Peridex] 15 ml PO BID Discharge Medication List Calcium Carbonate [Calcium] 600 mg PO DAILY 02/11/19 [History] Chlorhexidine Gluconate [Peridex] 15 ml PO BID 02/11/19 [History] Cholecalciferol (Vitamin D3) [Vitamin D3] 2,000 unit PO DAILY 02/11/19 [History] Diclofenac Sodium [Pennsaid] 1 spray TOPICAL DAILY 02/11/19 [History] Ferrous Sulfate [Feosol] 325 mg PO DAILY 02/11/19 [History] Gabapentin [Neurontin] 1 - 2 mg PO TID 02/11/19 [History] Multivitamins, Thera [Multivitamin (formulary)] 1 tab PO DAILY 02/11/19 [History] Potassium 99 mg PO DAILY 02/11/19 [History] Triamcinolone 0.1% Cream [Kenalog 0.1% Cream] 1 applic TOPICAL DAILY 02/11/19 [History] Triamterene-Hctz 37.5-25Mg [Dyazide 37.5-25 Capsule] 1 cap PO DAILY 02/11/19 [History] Turmeric Root Extract [Turmeric] 500 mg PO DAILY 02/11/19 [History] tiZANidine [Zanaflex] 1 - 2 tab PO HS 02/11/19 [History] Aspirin 325 mg PO BID #1 tab 02/21/19 [Rx] HYDROcodone/APAP 7.5-325MG [[place] 7.5-325] 1 - 2 tab PO Q4-6H PRN #40 tab 02/21/19 [Rx] Sennosides-Docusate Sodium [Senokot-S] 1 tab PO BID #60 tablet 02/21/19 [Rx] Follow up Appointment(s)/Referral(s): Beata Art PAC [PHYSICIAN CORPORATE COMMUNICATIONS MANAGER] - 2 Weeks Bernabe Carrion MD [Primary Care Provider] - 1 Week Activity/Diet/Wound Care/Special Instructions: Hold Dyazide until Thursday. May start taking if BP > 130 or having lower extremity edema. May bear weight as tolerated with walker. May shower if no drainage from incision 48 hours post op. Patient is going to outpatient therapy and will not need home care or home PT. Discharge Disposition: HOME SELF-CARE
--- NOTE | 2019-02-22 12:14 | P.PN ---
Subjective Progress Note Date: 02/22/19 This is a 68-year-old female patient of Dr. Carrion with past medical history of hypertension and obstructive sleep apnea on CPAP. Patient has been brought into the hospital under the care of Dr. Severino is post left total knee arthroplasty. Patient is seen in the immediate postop period. Pain is currently controlled. Q-pump is in place for pain management. Blood pressure is on the low side and Dyazide will be held for today. This may be resumed tomorrow depending on blood pressures. Patient denies any lightheadedness, dizziness, chest pain or shortness of breath. No nausea or vomiting. 02/22: Hemoglobin today is at 10.8. Patient did have a drop in her blood pressure when she got up to ambulate with physical therapy. She was given IV fluids and blood pressure has returned to normal. Patient has been advised to hold Dyazide at home for one week and resume on Thursday as long as blood pressure is greater than 130 systolic at home and or she has lower extremity edema. Patient is scheduled for discharge home today. Patient's pain is controlled. She is on aspirin for DVT prophylaxis. Review of Systems Constitutional: Denies lethargy, Denies chills, Denies fatigue, Denies fever, Denies poor appetite, Denies weakness Eyes: denies blurred vision, denies pain Ears, nose, mouth and throat: Denies headache, Denies nasal congestion, Denies nasal discharge, Denies sore throat, Denies vertigo Cardiovascular: Denies chest pain, Denies decreased exercise tolerance, Denies dyspnea on exertion, Denies edema, Denies leg edema, Denies lightheadedness, Denies shortness of breath, Denies syncope Respiratory: Denies cough, Denies cough with sputum, Denies dyspnea, Denies excessive sputum, Denies hemoptysis, Denies home oxygen, Denies wheezing Gastrointestinal: Denies abdominal pain, Denies diarrhea, Denies loss of appetite, Denies nausea, Denies vomiting Genitourinary: Denies dysuria, Denies hematuria, Denies urgency, Denies urinary frequency Musculoskeletal: Denies frequent falls, Denies gait dysfunction, Denies muscle weakness, Denies myalgias Musculoskeletal: left: knee pain Integumentary: Reports wounds, Denies pruritus, Denies rash Neurological: Denies change in mentation, Denies change in speech, Denies numbness, Denies seizures, Denies weakness Psychiatric: Denies anxiety, Denies depression Endocrine: Denies fatigue, Denies weight change Objective - Vital Signs Vital signs: Vital Signs Temp 98.9 F 02/22/19 07:00 Pulse 69 02/22/19 07:00 Resp 12 02/22/19 07:00 BP 111/66 02/22/19 07:00 Pulse Ox 94 L 02/22/19 07:00 Intake & Output 02/21/19 02/22/19 02/22/19 18:59 06:59 18:59 Intake Total 2054 Output Total 100 Balance 1954 Intake: IV 895 Oral 1160 Output: Estimated Blood Loss 100 Other: # Voids 1 1 - Exam Gen: This is a 68-year-old female. Patient is in a chair and appears to be comfortable and in no acute distress. HEENT: Head is atraumatic, normocephalic. Pupils equal, round. Sclerae is anicteric. NECK: Supple. No JVD. No lymphadenopathy. No thyromegaly. LUNGS: Clear to auscultation. No wheezes or rhonchi. No intercostal retractions. HEART: Regular rate and rhythm. No murmur. ABDOMEN: Soft. Bowel sounds are present. No masses. No tenderness. EXTREMITIES: No pedal edema. No calf tenderness. Dressing in place to the left knee. NEUROLOGICAL: Patient is awake, alert and oriented x3. Cranial nerves 2 through 12 are grossly intact. - Labs CBC & Chem 7: 02/22/19 05:19 Labs: Abnormal Lab Results - Last 24 Hours (Table) 02/22/19 Range/Units 05:19 RBC 3.56 L (3.80-5.40) m/uL Hgb 10.8 L (11.4-16.0) gm/dL Assessment and Plan Plan: 1. Osteoarthritis status post left knee arthroplasty, postop day #0. Continue current pain management, incentive spirometry to reduce incidence of atelectasis and hospital-acquired pneumonia. DVT prophylaxis aspirin 325 mg twice daily. 2. Hypertension. Blood pressure is currently on the lower side and Dyazide will be held. 3. Obstructive sleep apnea on CPAP at bedtime. 4. GI prophylaxis. Pepcid. 5. Postoperative hypotension, expected following surgery. Patient is status post IV fluids, Dyazide on hold. Discharge plan: home Impression and plan of care have been directed as dictated by the signing physician. Melvina Baldwin nurse practitioner acting as scribe for signing physician.
[2019-02-22] MEDS ORDERED: SODIUM CHLORIDE 0.9% 1,000 ML IV ONE (14:00)
--- NOTE | 2019-02-22 14:12 | P.PN ---
Progress Note - Text 02/22 612am 68 year old female s/p tkr by Dr Severino.pt has an on -q pump for post op pain control with rate at 8cc/hr .pt has a vas of 4. plan to continue infusion.
[2019-02-22] MEDS: SENNOSIDES-DOCUSATE SODIUM 1 EACH TAB PO SCH (20:52)
[2019-02-23] MEDS: LACTATED RINGERS 1,000 ML IV SCH ×3 (06:45→12:44)
--- NOTE | 2019-02-23 08:09 | P.PN ---
Progress Note - Text Progress Note Date: 02/23/19 Patient with some knee pain, described as moderate. Patient received [place] yesterday with relief. Denies leg weakness. VSS Left adductor catheter site clean and dry A/P POD#2 s/p L TKA - continue current therapy
--- NOTE | 2019-02-23 08:11 | P.PN ---
Progress Note - Text Progress Note Date: 02/23/19 This is a 68-year-old female who is status post total left knee arthroplasty. Her discharge was held yesterday secondary to orthostatic hypotension. Her blood pressure is stabilized today. She states that she still has not quite feel well. She reports that her pain is fairly well controlled. Exam of the lower extremities reveals that her dressing is clean, dry and intact. She has full foot and ankle motion bilaterally. Neurovascular status to the lower extremity is intact. She may be discharged to home today if cleared medically. Please see previous discharge summary and med rec.
[2019-02-23] MEDS: CHOLECALCIFEROL 1,000 UNIT TAB PO SCH (08:26)
[2019-02-23] MEDS: ASPIRIN 325 MG TAB PO SCH (08:26)
[2019-02-23] MEDS: MULTIVITAMINS, THERA 1 EACH TAB PO SCH (08:27)
[2019-02-23] MEDS: MELOXICAM 7.5 MG TAB PO SCH (08:27)
[2019-02-23] MEDS: CALCIUM CARB-VIT D 500MG-200UN 1 EACH TAB PO SCH (08:27)
[2019-02-23] MEDS: GABAPENTIN 400 MG CAP PO SCH (08:27)
[2019-02-23] MEDS: FERROUS SULFATE 325 MG TAB PO SCH (08:27)
[2019-02-23] MEDS: FAMOTIDINE 20 MG TAB PO SCH (08:27)
[2019-02-23 09:02] VITALS: BP 124/78; PULSE 86; RESP 12; TEMP 98.7
--- NOTE | 2019-02-23 14:18 | P.PN ---
Subjective Progress Note Date: 02/23/19 This is a 68-year-old female patient of Dr. Carrion with past medical history of hypertension and obstructive sleep apnea on CPAP. Patient has been brought into the hospital under the care of Dr. Severino is post left total knee arthroplasty. Patient is seen in the immediate postop period. Pain is currently controlled. Q-pump is in place for pain management. Blood pressure is on the low side and Dyazide will be held for today. This may be resumed tomorrow depending on blood pressures. Patient denies any lightheadedness, dizziness, chest pain or shortness of breath. No nausea or vomiting. 02/22: Hemoglobin today is at 10.8. Patient did have a drop in her blood pressure when she got up to ambulate with physical therapy. She was given IV fluids and blood pressure has returned to normal. Patient has been advised to hold Dyazide at home for one week and resume on Thursday as long as blood pressure is greater than 130 systolic at home and or she has lower extremity edema. Patient is scheduled for discharge home today. Patient's pain is controlled. She is on aspirin for DVT prophylaxis. 02/23: Yesterday afternoon, patient again had a drop in her blood pressure and received 1 L of IV fluids. Patient states she's not quite feeling herself today. She continues to feel somewhat weak. Blood pressure is improved today and orthostatics also have improved. Currently blood pressure is 129/78, pulse ox 93% on room air, heart rate 86, afebrile. .Review of Systems Constitutional: Denies lethargy, Denies chills, reports fatigue, denies fever, Denies poor appetite, Denies weakness Eyes: denies blurred vision, denies pain Ears, nose, mouth and throat: Denies headache, Denies nasal congestion, Denies nasal discharge, Denies sore throat, Denies vertigo Cardiovascular: Denies chest pain, Denies decreased exercise tolerance, Denies dyspnea on exertion, Denies edema, Denies leg edema, Denies lightheadedness, Denies shortness of breath, Denies syncope Respiratory: Denies cough, Denies cough with sputum, Denies dyspnea, Denies excessive sputum, Denies hemoptysis, Denies home oxygen, Denies wheezing Gastrointestinal: Denies abdominal pain, Denies diarrhea, Denies loss of appetite, Denies nausea, Denies vomiting Genitourinary: Denies dysuria, Denies hematuria, Denies urgency, Denies urinary frequency Musculoskeletal: Denies frequent falls, Denies gait dysfunction, Denies muscle weakness, Denies myalgias Musculoskeletal: left: knee pain Integumentary: Reports wounds, Denies pruritus, Denies rash Neurological: Denies change in mentation, Denies change in speech, Denies numbness, Denies seizures, Denies weakness Psychiatric: Denies anxiety, Denies depression Endocrine: Denies fatigue, Denies weight change Objective - Vital Signs Vital signs: Vital Signs Temp 98.7 F 02/23/19 07:00 Pulse 86 02/23/19 07:00 Resp 12 02/23/19 07:00 BP 124/78 02/23/19 07:00 Pulse Ox 93 L 02/23/19 07:00 Intake & Output 02/22/19 02/23/19 02/23/19 18:59 06:59 18:59 Intake Total 3160 890 Balance 3160 890 Intake: Intake, IV Titration 2000 350 Amount Lactated Ringers 1,000 ml 1000 350 @ 100 mls/hr IV .Q10H EMILI Rx#:[id number] Sodium Chloride 0.9% 1, 1000 000 ml @ 999 mls/hr IV . Q1H1M ONE Rx#:[id number] Oral 1160 540 Other: Voiding Method Toilet Toilet # Voids 3 - Exam Gen: This is a 68-year-old female. Patient is in a bed and appears to be tired. No acute distress.. HEENT: Head is atraumatic, normocephalic. Pupils equal, round. Sclerae is anicteric. NECK: Supple. No JVD. No lymphadenopathy. No thyromegaly. LUNGS: Clear to auscultation. No wheezes or rhonchi. No intercostal retractions. HEART: Regular rate and rhythm. No murmur. ABDOMEN: Soft. Bowel sounds are present. No masses. No tenderness. EXTREMITIES: No pedal edema. No calf tenderness. Dressing in place to the left knee. NEUROLOGICAL: Patient is awake, alert and oriented x3. Cranial nerves 2 through 12 are grossly intact. - Labs CBC & Chem 7: 02/22/19 05:19 Assessment and Plan Plan: 1. Osteoarthritis status post left knee arthroplasty, postop day #2. Continue current pain management, incentive spirometry to reduce incidence of atelectasis and hospital-acquired pneumonia. DVT prophylaxis aspirin 325 mg twice daily. 2. Hypertension. Blood pressure is currently on the lower side and Dyazide will be held. 3. Obstructive sleep apnea on CPAP at bedtime. 4. GI prophylaxis. Pepcid. 5. Postoperative hypotension, expected following surgery. Patient is status post IV fluids, Dyazide on hold. Patient instructed to hold Dyazide for one week. Discharge plan: home Impression and plan of care have been directed as dictated by the signing phys ician. Melvina Baldwin nurse practitioner acting as scribe for signing physician.
== END 2019-02-23 15:35 | disposition home or self-care (01) | DRG 470 ==
LOC: OR 06:17 → 4SSUR 09:44 → INTOOBSV 02-22 15:26 → OR 02-22 15:26 → OBSVTOIN 02-22 15:26 → 4SSUR 02-22 15:26
PROVIDERS: ADMIT Orthopaedic Surgery; ATTEND Orthopaedic Surgery
PROC: 0SRD0J9 Replacement of Left Knee Joint with Synthetic Substitute, Cemented, Open Approach (ICD-10-PCS; principal; 2019-02-21 12:30)
DX: M17.12 Unilateral primary osteoarthritis, left knee (principal); G47.33 Obstructive sleep apnea (adult) (pediatric); I10 Essential (primary) hypertension; I95.1 Orthostatic hypotension; M21.162 Varus deformity, not elsewhere classified, left knee; Z79.82 Long term (current) use of aspirin; Z99.89 Dependence on other enabling machines and devices; Z80.7 Family history of other malignant neoplasms of lymphoid, hematopoietic and related tissues; Z82.0 Family history of epilepsy and other diseases of the nervous system; Z83.3 Family history of diabetes mellitus; Z90.721 Acquired absence of ovaries, unilateral; Z79.899 Other long term (current) drug therapy
CPT/HCPCS: 64448; 76942; 85025; 88300

== ENCOUNTER → 2020-04-23 | Outpatient (CLI) | payer MEDICARE ==
--- NOTE | 2020-04-24 09:43 | MM ---
Reason for exam: screening (asymptomatic). Last mammogram was performed 1 year and 3 months ago. History: Patient is postmenopausal. MG stereo VAD BX RT of the right breast, December 02, 2004. MG discontinued stereo core RT of the right breast, December 02, 2004. Physical Findings: A clinical breast exam by your physician is recommended on an annual basis and results should be correlated with mammographic findings. MG 3D Screening Mammo W/Cad Bilateral CC and MLO view(s) were taken. Prior study comparison: January 20, 2019, bilateral MG 3d screening mammo w/cad. October 27, 2017, bilateral MG 3d screening mammo w/cad. There are scattered fibroglandular densities. There is chronic nodularity in the right breast. No significant changes when compared with prior studies. ASSESSMENT: Benign, BI-RAD 2 RECOMMENDATION: Routine screening mammogram of both breasts in 1 year.
== END | disposition home or self-care (01) ==
LOC: RADMAMWWP 16:29
PROVIDERS: ATTEND Obstetrics & Gynecology
DX: Z12.31 Encounter for screening mammogram for malignant neoplasm of breast (principal)
CPT/HCPCS: 77063; 77067

== ENCOUNTER → 2020-06-11 | Outpatient (CLI) | payer MEDICARE ==
[2020-06-11 13:01] VITALS: BP 132/84; PULSE 70; RESP 18; TEMP 97.8
--- NOTE | 2020-06-11 13:13 | P.CONS ---
History of Present Illness - Reason for Consult Consult date: 06/11/20 - Chief Complaint Lower back and bilateral hip pain - History of Present Illness This is a 69-year-old lady with history of chronic lower back pain with radiation to both hips with no numbness or tingling in the lower extremities. She also denies any weakness in the lower extremities or any bowel or bladder dysfunction. The pain occasionally wakes her up at night. She denies any weight loss recently. The patient used to get lumbar medial branch RFA by Dr. Driscoll which helps her with her pain. She is scheduled to get an epidural steroid injection tomorrow by Dr. Felix. Her lumbar spine MRI showed spondylitic changes with neural foraminal stenoses. It also showed partial sacralization of the L5 vertebra on the left side. Past Medical History Past Medical History: Hypertension, Osteoarthritis (OA), Sleep Apnea/CPAP/BIPAP Additional Past Medical History / Comment(s): hx migraines, History of Any Multi-Drug Resistant Organisms: None Reported Past Surgical History: Appendectomy, Section, Orthopedic Surgery, Tubal Ligation Additional Past Surgical History / Comment(s): cyst on lt ovary removed, bunionectomy rt foot, left shoulder surgery, arthroscopy left knee, epidurals and rhizotomy back, dental implantsleft total knee arthroplasty Past Anesthesia/Blood Transfusion Reactions: No Reported Reaction Smoking Status: Never smoker - Past Family History Father Family Medical History: Cancer Additional Family Medical History / Comment(s): . Sister(s) Family Medical History: Cancer Additional Family Medical History / Comment(s): lymphoma. Mother Additional Family Medical History / Comment(s): Mother at age 91 from Alzheimer's dementia. Brother(s) Additional Family Medical History / Comment(s): Patient has 2 brothers and one has diabetes. Patient has 2 children with no major medical problems. Medications and Allergies Home Medications Medication Instructions Recorded Confirmed Type Calcium Carbonate [Calcium] 600 mg PO BID 02/11/19 06/08/20 History Chlorhexidine Gluconate [Peridex] 15 ml PO BID 02/11/19 06/08/20 History Cholecalciferol (Vitamin D3) 2,000 unit PO DAILY 02/11/19 06/08/20 History [Vitamin D3] Diclofenac Sodium [Pennsaid] 1 spray TOPICAL DAILY PRN 02/11/19 06/08/20 History Multivitamins, Thera [Multivitamin 1 tab PO DAILY 02/11/19 06/08/20 History (formulary)] Potassium 99 mg PO DAILY 02/11/19 06/08/20 History Triamcinolone 0.1% Cream [Kenalog 1 applic TOPICAL DAILY PRN 02/11/19 06/08/20 History 0.1% Cream] Triamterene-Hctz 37.5-25Mg 1 cap PO DAILY 02/11/19 06/08/20 History [Dyazide 37.5-25 Capsule] Cinnamon Bark [Cinnamon] 2,000 mg PO BID 06/08/20 06/08/20 History Diclofenac Sodium [Voltaren Gel] 2 gram TOPICAL DAILY PRN 06/08/20 06/08/20 History Ferrous Sulfate [Feosol] 325 mg PO DAILY 06/08/20 06/08/20 History Glucosam/Sixto-Msm1/C/Ziyad/Bosw 4 each PO DAILY 06/08/20 06/08/20 History [Glucosamine-Chondroitin Tablet] Pregabalin [Lyrica] 75 mg PO BID 06/08/20 06/08/20 History Turmeric Cap 1,400 mg PO DAILY 06/08/20 06/08/20 History Allergies Allergy/AdvReac Type Severity Reaction Status Date / Time No Known Allergies Allergy Verified 06/08/20 13:14 Physical Exam Vitals: Vital Signs Temp Pulse Resp BP Pulse Ox 06/11/20 12:56 97.8 F 70 18 132/84 99 - Constitutional General appearance: average body habitus - EENT Eyes: PERRLA - Neurologic Neuro exam of the lower extremities was normal for muscle strength and deep tendon reflexes. Positive facet loading test bilaterally in the lumbar area. Process tenderness in the lumbar paravertebral musculature bilaterally. Straight leg raising test negative bilaterally. Positive tenderness around the right sacroiliac joint. 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 Yamila burgess might benefit from getting this procedure again without the need for a diagnostic medial branch block. I asked the patient to wait for at least 4 weeks from now since she is getting epidural steroid injection by the tomorrow. If her pain is still there in her back 4 weeks from now then we'll plan on doing lumbar medial branch RFA bilaterally for the levels of L4-L5 and L5-S1 under fluoroscopic guidance. I thank you for the referral
== END | disposition home or self-care (01) ==
LOC: PNWHC3 12:39
PROVIDERS: ATTEND Anesthesiology
DX: M48.061 Spinal stenosis, lumbar region without neurogenic claudication (principal); M46.1 Sacroiliitis, not elsewhere classified; M19.90 Unspecified osteoarthritis, unspecified site; M47.816 Spondylosis without myelopathy or radiculopathy, lumbar region; I10 Essential (primary) hypertension; G47.33 Obstructive sleep apnea (adult) (pediatric); Z99.89 Dependence on other enabling machines and devices; Z79.899 Other long term (current) drug therapy; Z79.1 Long term (current) use of non-steroidal anti-inflammatories (NSAID)
CPT/HCPCS: 99211

== ENCOUNTER → 2020-06-28 | Outpatient (CLI) | payer MEDICARE ==
--- NOTE | 2020-06-29 00:24 | SFUN ---
SLEEP CENTER FOLLOW UP NOTE DATE OF SERVICE: 06/28/2020 69-year-old lady has been followed in Sleep Center for treatment of obstructive sleep apnea-hypopnea syndrome. Recently, patient received her new CPAP unit. She likes the machine. She is able to use it every night without significant problems related to mask fitting, pressure or humidification. She is getting her supplies well. [place] Sleepiness Scale today heart is 8, which is in normal range. I checked her CPAP unit. CPAP pressure is 8 cm of water. Usage is 30/30 nights for more than 4 hours with average usage 7.6 hours per night. Leak is 2 L/minute which is perfect. Apnea-hypopnea index is 2.4, which is normal. MEDICATIONS: Triamterene, hydrochlorothiazide 37.5/25 mg once a day, pregabalin 100 mg 3 times a day, glucosamine chondroitin 3 capsules daily. PHYSICAL EXAM: Patient in no distress. BP 105/61, HR 57, RR 12, weight 178.2, temperature 98.2, oxygen saturation at room air 95%. Oropharynx: Low position of soft palate, Mallampati 3. NECK: Supple, no JVD. Thyroid is not palpable. LUNGS: Clear to percussion and to auscultation. Good air exchange. No wheezing or rhonchi. HEART: S1, S2 regular. No murmurs, gallops, or rubs. ABDOMEN: Soft and nontender. Bowel sounds are present. No organomegaly appreciated. EXTREMITIES: No clubbing or cyanosis. DEATH CLAIM EXAMINER: Awake, alert, and oriented X3. Cranial nerves 2 to 7 intact. There is no fasciculation or atrophy. noted. No focal deficits observed. IMPRESSION: 1. Obstructive sleep apnea-hypopnea syndrome. The patient demonstrated great compliance with treatment benefitting from treatment. 2. Hypertension. 3. Back problems. 4. History of insomnia. 5. Status post left knee replacement. 6. History of herniated disc on the back. PLAN: 1. Patient will continue to use PAP equipment every night for the whole night. 2. Sleep hygiene with regular time in bed for at least 7-1/2 to 8 hours. 3. Precautions related to driving. No driving if feeling sleepiness. 4. I will maintain all necessary prescription for PAP supplies including mask, tube, filters. 5. Watching weight. 6. No driving if feeling sleepiness. 7. Follow-up visit in 6 months or earlier if patient has any problems. Thank you very much for allowing me to participate in management of your patient. Sincerely, Heraclio Pink MD, PhD, FAASM Diplomat of [employer] [employer] [employer] Assistant Plant Control Operator of [facility] [place] MMODL / KASHN: [id number] /
== END | disposition home or self-care (01) ==
LOC: SLEEP 13:35
PROVIDERS: ATTEND Internal Medicine
DX: G47.33 Obstructive sleep apnea (adult) (pediatric) (principal); I10 Essential (primary) hypertension; M43.9 Deforming dorsopathy, unspecified; Z96.652 Presence of left artificial knee joint; Z87.39 Personal history of other diseases of the musculoskeletal system and connective tissue; Z99.89 Dependence on other enabling machines and devices; Z79.899 Other long term (current) drug therapy; Z86.59 Personal history of other mental and behavioral disorders

== ENCOUNTER 2020-07-06 08:31 | Day surgery (SDC) | payer MEDICARE ==
[2020-07-03 15:04] VITALS: BMI 27.8
[~2020-07-06 08:31] MED LIST changes: +LACTATED RINGERS 1,000 ML IV SCH; -LIDOCAINE 1% 20 ML VIAL (10MG/ML) FOR IV START INTRADERMA PRN; -MIDAZOLAM 2 MG/2 ML VIAL IV PRN; -fentaNYL (PF) 50 MCG/ML 2 ML AMP IV PRN
[2020-07-06 08:49] VITALS: TEMP 97.1
[2020-07-06] MEDS ORDERED: LIDOCAINE 1% (10MG/ML) FOR IV START INTRADERMA ONE (08:49)
[2020-07-06] MEDS ORDERED: MIDAZOLAM 2 MG/2 ML VIAL ONE (08:56)
[2020-07-06] MEDS ORDERED: LIDOCAINE 1% INJ 10MG/ML (20 ML MDV) ONE (08:56)
[2020-07-06] MEDS ORDERED: LIDOCAINE 4% (PF) 5 ML AMP ONE (08:56)
[2020-07-06] MEDS ORDERED: IV FLUID CONTINUATION 1,000 ML IV ONE (09:39)
[2020-07-06 09:42] VITALS: PULSE 51
[2020-07-06 09:55] VITALS: BP 105/74; RESP 16
--- NOTE | 2020-07-06 13:41 | FL ---
Fluoroscopy INDICATION: Pain FINDINGS: Fluoroscopy time: 23 seconds. Images obtained: 5. IMPRESSIONS: 1. Documentation of fluoroscopy.
--- NOTE | 2020-07-09 09:34 | P.PCN ---
Date of Procedure: 07/06/20 Description of Procedure: PREOPERATIVE DIAGNOSIS: Lumbar Spondylosis POSTOPERATIVE DIAGNOSIS: Same PROCEDURES: Radiofrequency ablation of the L3, L4, L5 medial branches with fluoroscopic guidance bilateraly SURGEON: Deonte Bird MD. ANESTHESIA: Lidocaine 1% 5 mL, Moderate sedation with intravenous Versed and fentanyl, sedation time 34 EBL: Minimal Fluoroscopy was used for the procedure and images were saved in the radiology portion of the chart. PROCEDURE INDICATION: The patient with low back pain secondary to lumbar facet arthropathy who had more than 50% relief of pain with previous diagnostic lumbar medial branch block X2. PROCEDURE DESCRIPTION / TECHNIQUE: The patient was seen and identified in the preoperative area. Risks, benefits, complications, including but not limited to risk of infection ,bleeding , allergic reactions to the medications and incomp lete pain relief , and alternatives were discussed with the patient, the patient agreed to proceed with the procedure and signed the consent. IV was started. The operative site was marked. Patient was taken to the OR and time out was completed. The patient was placed in the prone position on the procedure table. The lumbar area was prepped and draped in the usual sterile fashion. . Vital signs were closely monitored during the procedure .IV sedation was used during the procedure to decrease patients anxiety. Using AP and then oblique fluoroscopy, the "eye of the Henry dog" corresponding to the connection between the superior and transverse articular processes of the [] L4 and L5 as well as the sacral ala were identified, marked, and localized with 1% lidocaine. Subsequently, an 18 guage[100/150-mm] radiofrequency cannula with a 10-mm active tip was advanced guided by fluoroscopy to the identified target at each site. Needle positioning was confirmed on AP, oblique and lateral fluoroscopy. Motor testing at 2.5 Hz was done with paraspinal muscle stimulation only, and no radicular symptoms down the legs. Then 1 mL of 4% lidocaine was injected in each site. Radiofrequency thermocoagulation at 80 degrees celsius for 90 seconds was then performed. [place] were removed. Sterile dressings were applied. COMPLICATIONS: No acute complications. DISPOSITION / PLANS: The patient was placed in a supine position and transferred to the recovery area in a stable condition for observation and was discharged from the recovery room after meeting discharge criteria. Home di scharge instructions given to the patient by the staff. The patient will follow up in clinic in 4 weeks.
== END 2020-07-06 10:09 | disposition home or self-care (01) ==
LOC: ORPAIN 08:31
PROVIDERS: ATTEND Anesthesiology
DX: M47.816 Spondylosis without myelopathy or radiculopathy, lumbar region (principal); I10 Essential (primary) hypertension; G47.33 Obstructive sleep apnea (adult) (pediatric); Z99.89 Dependence on other enabling machines and devices; M19.90 Unspecified osteoarthritis, unspecified site; G43.909 Migraine, unspecified, not intractable, without status migrainosus; Z79.899 Other long term (current) drug therapy; Z78.0 Asymptomatic menopausal state
CPT/HCPCS: 64635; 64636; J2001 ×2; J2250; 99152

== ENCOUNTER → 2020-08-01 | Outpatient (CLI) | payer MEDICARE ==
[2020-08-01 10:14] VITALS: BP 120/78; PULSE 64; RESP 18; TEMP 97.9
--- NOTE | 2020-08-01 10:28 | P.PN ---
Subjective Progress Note Date: 08/01/20 This is a follow-up visit for this 69 years old female with a chronic history of severe low back pain, she is diagnosed with lumbar spondylosis and lumbar facet arthropathy, and lumbar degenerative disc disease and lumbar foraminal stenosis, and right sacroiliitis, recently we did RFA of the medial branch lumbar area, patient reported that her pain improved significantly she has more than 70% improvement of her low back pain, she denies any motor or sensory deficits denies any fever or night sweats she is very satisfied with the result of the treatment Objective - Vital Signs Vital signs: Vital Signs Temp 97.9 F 08/01/20 10:12 Pulse 64 08/01/20 10:12 Resp 18 08/01/20 10:12 BP 120/78 08/01/20 10:12 Pulse Ox 99 08/01/20 10:12 - Exam Physical Examinations : -Constitutiona : Cooperative , not in acute distress . -HEENT : nech : supple , no Lymphadenopathy , normal thyroid size . : eyes : no ptosis , no icterus, no photophobia . - neurologic : Cranial nerve II to XII intact , no focal neurological deffecit . -psychatric : alert , oriented X 3 , appropriate affect , intact judgment and insight . -Lymphatic : no Lymphadenopathy . - musculoskeltal : Lumber spine moter stegnth lower extremities ,thigh and legs 5/5 Right side , 5/5 Left side Assessment and Plan Plan: Assessment and plan=1-lumbar spondylosis with lumbar facet arthropathy without myelopathy 2-lumbar degenerative disc disease. 3-Lumbar foraminal stenosis. Status post are available for the medial branch lumbar area patient did very well and she will follow up in the pain clinic when necessary - PQRS measures = - Patient's medications are documented in the chart. -Tobacco use is negative and counseling.Given. -Patient's has not received pneumococcal vaccine. -Advanced care planning discussed, patient not eligible. -Opiate contract not signed. -Pain positive and follow-up visit/procedure is scheduled. -Patient's blood pressure measured [ 120/78 ] , and documented in the record ,and patient will follow up with the primary care. -Patient's weight was measured and body mass index [ 27] above the normal limits and counseling was done. and patient instructed to follow-up with the primary care physician. -Patient was not identified as an unhealthy alcohol user Time with Patient: Less than 30
== END ==
LOC: PNWHC3 10:01
PROVIDERS: ATTEND Specialist
DX: M51.36 Other intervertebral disc degeneration, lumbar region (principal); M48.061 Spinal stenosis, lumbar region without neurogenic claudication; M47.816 Spondylosis without myelopathy or radiculopathy, lumbar region
CPT/HCPCS: 99211

== ENCOUNTER → 2021-01-02 | Outpatient (CLI) | payer MEDICARE ==
--- NOTE | 2021-01-02 11:20 | P.PAINPG ---
Subjective Progress Note Date: 01/02/21 This is a follow-up visit for this 70 years old female with a chronic history of severe low back pain, she is diagnosed with lumbar spondylosis and lumbar facet arthropathy, and lumbar degenerative disc disease and lumbar foraminal stenosis, and right sacroiliitis. In June of this year we performed bilateral L4-5 and L5-S1 radiofrequency ablation with greater than 70% relief. Repeat the procedure now. She says her pain is mostly coming back at this time. Pain is located in the low back without radiation to the lower extremities and she has no weakness in the lower extremities. She is also scheduled to have some type of left hand surgery which sounds like a tendon arthroplasty on January 17. She was concerned about possibly doing these procedures close together. , she denies any motor or sensory deficits denies any fever or night sweats she is very satisfied with the result of the treatment. Has no bowel or bladder incontinence, saddle anesthesia, significant weakness of lower extremities. - Exam Physical Examinations : -Constitutiona : Cooperative , not in acute distress . -HEENT : nech : supple , no Lymphadenopathy , normal thyroid size . : eyes : no ptosis , no icterus, no photophobia . - neurologic : Cranial nerve II to XII intact , no focal neurological deffecit . -psychatric : alert , oriented X 3 , appropriate affect , intact judgment and insight . -Lymphatic : no Lymphadenopathy . - musculoskeltal : Lumber spine moter stegnth lower extremities ,thigh and legs 5/5 Right side , 5/5 Left side Assessment and Plan Plan: Assessment and plan=1-lumbar spondylosis with lumbar facet arthropathy without myelopathy 2-lumbar degenerative disc disease. 3-Lumbar foraminal stenosis. We can repeat her ablation after her hand surgery. There is no major interplay between these procedures as we are not injecting steroids with radiofrequency ablation. I am okay with doing the procedure when she feels comfortable after her surgery. I have spent 22 minutes on review of the records, review of the imaging available, ozfe-pd-cize interaction with the patient, medication management, follow-up care coordination and record creation. - PQRS measures = - Patient's medications are documented in the chart. -Tobacco use is negative and counseling.Given. -Patient's has not received pneumococcal vaccine. -Advanced care planning discussed, patient not eligible. -Opiate contract not signed. -Pain positive and follow-up visit/procedure is scheduled. -Patient's blood pressure measured [ 120/78 ] , and documented in the record ,and patient will follow up with the primary care. -Patient's weight was measured and body mass index [ 27] above the normal limits and counseling was done. and patient instructed to follow-up with the primary care physician. -Patient was not identified as an unhealthy alcohol user Objective - Vital Signs Vital signs: Intake & Output 12/31/20 01/01/21 01/01/21 18:59 06:59 18:59 Weight 77.111 kg PQRS Measure Charge Sheet PQRS Narrative: Smoking Status Never smoker Pain Intensity [Lower Back] 5 Scale Used Numeric (1 - 10) Hx Alcohol Use (MH) Yes Home Medications: Ambulatory Orders Calcium Carbonate [Calcium] 600 mg PO BID 02/11/19 Chlorhexidine Gluconate [Peridex] 15 ml PO BID 02/11/19 Cholecalciferol (Vitamin D3) [Vitamin D3] 2,000 unit PO DAILY 02/11/19 Multivitamins, Thera [Multivitamin (formulary)] 1 tab PO DAILY 02/11/19 Potassium 99 mg PO DAILY 02/11/19 Triamcinolone 0.1% Cream [Kenalog 0.1% Cream] 1 applic TOPICAL DAILY PRN 02/11/19 Triamterene-Hctz 37.5-25Mg [Dyazide 37.5-25 Capsule] 1 cap PO DAILY 02/11/19 Cinnamon Bark [Cinnamon] 2,000 mg PO BID 06/08/20 Glucosam/Sixto-Msm1/C/Ziyad/Bosw [Glucosamine-Chondroitin Tablet] 4 each PO DAILY 06/08/20 Turmeric Cap 1,400 mg PO DAILY 06/08/20 Clobetasol Propionate/Emoll [Clobetasol Emulsion 0.05% Foam] 1 applic TOPICAL DIRECTED PRN 07/03/20 Ferrous Sulfate [Iron (65 MG Elemental)] 325 mg PO DAILY 07/03/20 Pregabalin [Lyrica] 100 mg PO TID 07/03/20 Controlled Substance Measures - Controlled Substance Measures Is patient prescribed a controlled substance at discharge?: No
[2021-01-02 11:29] VITALS: BP 111/73; PULSE 60; RESP 18; TEMP 97.9
== END ==
LOC: PNWHC3 11:07
PROVIDERS: ATTEND Anesthesiology
DX: M47.816 Spondylosis without myelopathy or radiculopathy, lumbar region (principal); M51.36 Other intervertebral disc degeneration, lumbar region; M48.061 Spinal stenosis, lumbar region without neurogenic claudication
CPT/HCPCS: 99211

== ENCOUNTER 2021-01-25 13:12 | Day surgery (SDC) | payer MEDICARE ==
[2021-01-18 15:21] VITALS: BMI 26.6
[2021-01-25 13:34] VITALS: TEMP 97.9
[2021-01-25] MEDS: LACTATED RINGERS 1,000 ML IV SCH ×2 (13:36→13:39)
[2021-01-25] MEDS ORDERED: methylPREDNISolone ACETATE 40 MG/ML 1 ML VIAL ONE (13:40)
[2021-01-25] MEDS ORDERED: fentaNYL (PF) 50 MCG/ML 2 ML AMP ONE (13:40)
[2021-01-25] MEDS ORDERED: ROPIVACAINE 5MG/ML 20ML VIAL ONE (13:40)
[2021-01-25] MEDS ORDERED: MIDAZOLAM 2 MG/2 ML VIAL ONE (13:40)
--- NOTE | 2021-01-25 14:15 | P.PCN ---
Date of Procedure: 01/25/21 Procedure(s) Performed: PREOPERATIVE DIAGNOSIS: 1-Lumbar Spondylosis with Facet Arthropathy without myelopathy. 2- Lumber degenerative disc disease. POSTOPERATIVE DIAGNOSIS: 1- Lumbar Spondylosis with Facet Arthropathy without myelopathy. 2- Lumber degenerative disc disease. PROCEDURES : Bilateral Radiofrequency thermocoagulation, L3 , L4 , and L5 medial branch, with fluoroscopic guidance (fluoroscopy images available in the radiology department) ( to denervate the facet joint at bilateral L4-5 ,and L5-S1 levels ) ANESTHESIA: Monitered anesthesia care,as per anesthesia dept. EBL: Minimal PROCEDURE INDICATION: The patient with low back pain secondary to lumbar facet arthropathy who had more than 50% relief of her pain with previous diagnostic lumbar medial branch block with bupivacaine. PROCEDURE DESCRIPTION / TECHNIQUE: The patient was seen and identified in the preoperative area. Risks, benefits, complications, including but not limited to risk of infection ,bleeding , allergic reactions to the medications and no complete pain releife , and alternatives were discussed with the patient, the patient agreed to proceed with the procedure and signed the consent. IV was started. Vital signs remained stable throughout the procedure. Patient was taken to the OR and time out was completed. The patient was placed in the prone position on the procedure table. The lumber area was prepped and draped in the usual sterile fashion. . Vital signs were closely monitored during the procedure .IV sedation was used during the procedure to decrease patients anxiety. Using AP and then oblique fluoroscopy, the ``eye of the Henry dog correspondi ng to the connection between the superior and transverse articular processes of right L3, L4, and L5 were identified, marked, and localized with 1% lidocaine. Subsequently, a [id number] radiofrequency cannula with a 10-mm active tip was advanced guided by fluoroscopy to each of the``eyes of the Henry dog at right L3, L4, and L5. Each site then underwent sensory testing at 50 Hz and 0 to 1 volt and motor testing at 2.5 Hz and 0 to 3 volt with local stimulation, but no radicular symptoms down the legs. Thereafter each sites underwent radiofrequency thermocoagulation at 80 degrees celsius for 90 seconds after injecting 0.5 ml of PF Ropivacaine 1ml, then after the thermocoagulation done , 1 ml of the block solution containing 3 ml of Ropivacaine 0.5% was injected at the right L3 , L4 , and L5 , levels after negative aspiration of CSF and blood and with no paresthesias. Cannulas were retracted while injecting lidocaine 1% until the needle is out. The same procedure was repeated at the level of Left L3, L4, and L5 levels. At the end of the procedure, the skin was cleansed and bandages were applied. COMPLICATIONS: No acute complications. DISPOSITION / PLANS: The patient was placed in a supine position and transferred to the recovery area in a stable condition for observation and was discharged from the recovery room after meeting discharge criteria. Home disch arge instructions given to the patient by the staff. The patient was reexamined prior to discharge. The patient will schedule a follow up in the clinic in 2-4 weeks. note=no steroid use for this procedure 2 to pateints had recents surgery ,(rt wrist tendon arthroplasty )
[2021-01-25] MEDS ORDERED: IV FLUID CONTINUATION 650 ML IV ONE (14:17)
[2021-01-25 14:22] VITALS: RESP 16
--- NOTE | 2021-01-25 14:25 | FL ---
EXAMINATION TYPE: FL guided pain mgmt statistic DATE OF EXAM: 01/25/2021 HISTORY: Pain 32sec fluoro time,6 images to PACS.
[2021-01-25 14:37] VITALS: BP 132/85; PULSE 55
== END 2021-01-25 14:54 | disposition home or self-care (01) ==
LOC: ORPAIN 13:12
PROVIDERS: ATTEND Specialist
DX: M47.816 Spondylosis without myelopathy or radiculopathy, lumbar region (principal); G43.909 Migraine, unspecified, not intractable, without status migrainosus; G47.33 Obstructive sleep apnea (adult) (pediatric); Z79.899 Other long term (current) drug therapy
CPT/HCPCS: 64635; 64636; J2250; J1030; J3010; J2795

== ENCOUNTER → 2021-02-07 | Outpatient (CLI) | payer MEDICARE ==
--- NOTE | 2020-07-06 09:35 | P.PCN ---
Date of Procedure: 07/06/20 Description of Procedure: PREOPERATIVE DIAGNOSIS: Lumbar Spondylosis POSTOPERATIVE DIAGNOSIS: Same PROCEDURES: Radiofrequency ablation of the L3, L4, L5 medial branches with fluoroscopic guidance bilateraly SURGEON: Deonte Bird MD. ANESTHESIA: Lidocaine 1% 5 mL, Moderate sedation with intravenous Versed and fentanyl, sedation time 34 EBL: Minimal Fluoroscopy was used for the procedure and images were saved in the radiology portion of the chart. PROCEDURE INDICATION: The patient with low back pain secondary to lumbar facet arthropathy who had more than 50% relief of pain with previous diagnostic lumbar medial branch block X2. PROCEDURE DESCRIPTION / TECHNIQUE: The patient was seen and identified in the preoperative area. Risks, benefits, complications, including but not limited to risk of infection ,bleeding , allergic reactions to the medications and incomp lete pain relief , and alternatives were discussed with the patient, the patient agreed to proceed with the procedure and signed the consent. IV was started. The operative site was marked. Patient was taken to the OR and time out was completed. The patient was placed in the prone position on the procedure table. The lumbar area was prepped and draped in the usual sterile fashion. . Vital signs were closely monitored during the procedure .IV sedation was used during the procedure to decrease patients anxiety. Using AP and then oblique fluoroscopy, the "eye of the Henry dog" corresponding to the connection between the superior and transverse articular processes of the [] L4 and L5 as well as the sacral ala were identified, marked, and localized with 1% lidocaine. Subsequently, an 18 guage[100/150-mm] radiofrequency cannula with a 10-mm active tip was advanced guided by fluoroscopy to the identified target at each site. Needle positioning was confirmed on AP, oblique and lateral fluoroscopy. Motor testing at 2.5 Hz was done with paraspinal muscle stimulation only, and no radicular symptoms down the legs. Then 1 mL of 4% lidocaine was injected in each site. Radiofrequency thermocoagulation at 80 degrees celsius for 90 seconds was then performed. [place] were removed. Sterile dressings were applied. COMPLICATIONS: No acute complications. DISPOSITION / PLANS: The patient was placed in a supine position and transferred to the recovery area in a stable condition for observation and was discharged from the recovery room after meeting discharge criteria. Home di scharge instructions given to the patient by the staff. The patient will follow up in clinic in 4 weeks.
--- NOTE | 2021-02-07 21:26 | SFUN ---
SLEEP CENTER FOLLOW UP NOTE DATE OF SERVICE: 02/07/2021 This 70-year-old lady has been followed in Sleep Center for treatment of obstructive sleep apnea-hypopnea syndrome. The patient continues to use her CPAP equipment every night, getting her CPAP supplies on time. [place] Sleepiness Scale is 6 today. I checked her CPAP unit. CPAP pressure is 8 cm of water. Usage is 30/30 nights and 28/30 nights for more than 4 hours, average 6.9 hours per night. Leak is 4 L/minute. Apnea-hypopnea index is 3.1, which is normal. MEDICATIONS: 1. Triamterene/hydrochlorothiazide 37.5/25 mg once a day. 2. Pregabalin 100 mg 3 capsules daily. 3. Multiple nutritional supplements, including glucosamine chondroitin, iron, calcium, multivitamins, magnesium, potassium, turmeric extract, vitamin E. PHYSICAL EXAMINATION: GENERAL: Pleasant patient in no distress. VITAL SIGNS: BP 121/65, HR 57, RR 15, height 5 feet 7 inches, weight 174.4, body mass index 27.2, temperature 96.9, oxygen saturation at room air 96%. HEENT: PERRLA, EOMI, evaluation of oropharynx showed tongue protrudes midline. Low position of soft palate; Mallampati III. NECK: Supple, no JVD. Thyroid is not palpable. LUNGS: Clear to percussion and to auscultation. Good air exchange. No wheezing or rhonchi. HEART: S1, S2 regular. No murmurs, gallops, or rubs. ABDOMEN: Soft and nontender. Bowel sounds are present. No organomegaly appreciated. EXTREMITIES: No clubbing or cyanosis. OUTSOLE SCHEDULER: Awake, alert, and oriented X3. Cranial nerves 2 to 7 intact. There is no fasciculation or atrophy. noted. No focal deficits observed. IMPRESSION: 1. Obstructive sleep apnea-hypopnea syndrome. Patient demonstrated 100% compliance with treatment, benefitting from treatment. 2. Hypertension. 3. Back problems. 4. History of insomnia. 5. Status post left knee replacement. 6. History of herniated disc on the back. 7. Status post right arm tendon arthroplasty 01/17/2021. PLAN: 1. Patient will continue to use PAP equipment every night for the whole night. 2. Sleep hygiene with regular time in bed for at least 7-1/2 to 8 hours. 3. Precautions related to driving. No driving if feeling sleepiness. 4. I will maintain all necessary prescription for PAP supplies including mask, tube, filters. 5. Watching weight. 6. Follow-up visit in 6 months or earlier if patient has any problems. I spent 30 minutes with the patient and documentation. Thank you very much for allowing me to participate in the management of your patient. Sincerely, Heraclio Pink MD, PhD, FAASM Diplomat of [employer] Sleep Medicine Board of [employer] Master Lay Out Specialist [facility] MMODL / IJN: [id number] /
== END ==
LOC: SLEEP 15:01
PROVIDERS: ATTEND Internal Medicine
DX: G47.33 Obstructive sleep apnea (adult) (pediatric) (principal); I10 Essential (primary) hypertension; M54.9 Dorsalgia, unspecified; Z96.652 Presence of left artificial knee joint; Z98.890 Other specified postprocedural states; Z86.69 Personal history of other diseases of the nervous system and sense organs

== ENCOUNTER → 2021-03-13 | Outpatient (CLI) | payer MEDICARE ==
[2021-03-13 14:53] VITALS: BP 133/73; PULSE 54; RESP 18; TEMP 97.7
--- NOTE | 2021-03-13 15:34 | P.PN ---
Subjective Progress Note Date: 03/13/21 Principal diagnosis: Lumbar spondylosis arthropathy without myelopathy Melvina is a 70-year-old female presented to clinic for follow-up appointment after a radiofrequency ablation 01/26/2021. She had a bilateral lumbar radiofrequency ablation L3 4 and L4 5. She reports since that procedure she says greater than 50% pain relief that is allowed to do increase her daily activities with less pain. She reports that she still has some pain in her lower back greater on the right side more into her buttocks denies any radiation down her leg. He reports the pain is worse with sitting better with rest. After the initial procedure she felt she had a little numbness sensation in the right buttock over that issue has resolved. She will return to clinic when she feels like her pain is returned enough to repeat her radiofrequency ablation. Objective - Exam Physical Examinations : -Constitutiona : Cooperative , not in acute distress . -HEENT : nech : supple , no Lymphadenopathy , normal thyroid size . : eyes : no ptosis , no icterus, no photophobia . - neurologic : Cranial nerve II to XII intact , no focal neurological deffecit . -psychatric : alert , oriented X 3 , appropriate affect , intact judgment and insight . -Lymphatic : no Lymphadenopathy . - musculoskeltal : Lumber spine moter stegnth lower extremities ,thigh and legs 5/5 Right side , 5/5 Left side deep tendon reflexes : normal Knee Jerk , normal ankle Jerk lumber facet Loading Test =positive Right , positive Left Range of motion of the lumbar spine Flexion 30 degrees, extension 10 degrees strait leg raising test = negative Assessment and Plan Assessment: Assessment and plan: Assessment: Lumbar spondylosis and arthropathy without myelopathy Lumbar radiculopathy Low back pain Plan: Consider repeat lumbar RFA in the future if it loses its effectiveness. - PQRS measures = - Patient's medications are documented in the chart. -Advanced care planning discussed, patient not eligible. -Opiate contract not signed. -Pain positive and follow-up visit/procedure is scheduled. -Patient's blood pressure measured [133/73 ] , and documented in the record ,and patient will follow up with the primary care. -Patient was not identified as an unhealthy alcohol user Time with Patient: Less than 30
== END ==
LOC: PNWHC3 11:04
PROVIDERS: ATTEND Student in an Organized Health Care Education/Training Program
DX: M47.26 Other spondylosis with radiculopathy, lumbar region (principal)
CPT/HCPCS: 99211

== ENCOUNTER → 2021-04-09 | Outpatient (CLI) | payer MEDICARE ==
[2021-04-09 15:34] LABS: Appearance,Urine Clear (Clear); Bilirubin,Urine Negative (Negative); Blood,Urine Negative (Negative); Color,Urine Light Yellow; Glucose,Urine (UA) Negative (Negative); Ketones,Urine Negative (Negative); Leukocyte Esterase,Urine Negative (Negative); Nitrite,Urine Negative (Negative); PH, Urine 7.5 (5.0-8.0); Protein,Urine Negative (Negative); Specific Gravity,Urine 1.007 (1.001-1.035); Urobilinogen,Urine <2.0 mg/dL (<2.0)
[2021-04-09 15:35] LABS: HCT 38.1 % (34.0-46.0); MCH 30.8 pg (25.0-35.0); MCHC 34.1 g/dL (31.0-37.0); MCV 90.3 fL (80.0-100.0); Mean Platelet Volume 7.2; Platelet Count 368 k/uL (150-450); RBC 4.22 m/uL (3.80-5.40); RDW 13.1 % (11.5-15.5); WBC 8.4 k/uL (3.8-10.6)
[2021-04-09 15:49] LABS: INR 0.9 (<1.2); Partial Thromboplastin Time 25.3 sec (22.0-30.0); Prothrombin Time 10.1 sec (9.0-12.0)
[2021-04-09 16:01] LABS: ALT 33 U/L (4-34); AST 40 U/L (14-36); African American GFR (CKD) >90 (>60 ml/min/1.73 sqM); Albumin 4.3 g/dL (3.5-5.0); Alkaline Phosphatase 61 U/L (38-126); Anion Gap 8 mmol/L; Blood Urea Nitrogen 14 mg/dL (7-17); Calcium 9.5 mg/dL (8.4-10.2); Carbon Dioxide 26 mmol/L (22-30); Chloride 100 mmol/L (98-107); Glucose 85 mg/dL (74-99); Non-African American GFR(CKD) >90 (>60 ml/min/1.73 sqM); Potassium 4.3 mmol/L (3.5-5.1); Sodium 134 mmol/L (137-145); Total Bilirubin 0.4 mg/dL (0.2-1.3); Total Protein 7.4 g/dL (6.3-8.2)
== END | disposition home or self-care (01) ==
LOC: LABPAT 14:05
PROVIDERS: ATTEND Orthopaedic Surgery
DX: Z01.818 Encounter for other preprocedural examination (principal); I45.10 Unspecified right bundle-branch block; R00.1 Bradycardia, unspecified; R94.31 Abnormal electrocardiogram [ECG] [EKG]
CPT/HCPCS: 80053; 81003; 85027; 85610; 85730; 87070; 93005

== ENCOUNTER 2021-04-22 12:53 | Day surgery (SDC) | payer MEDICARE ==
[2021-04-18 12:51] VITALS: BMI 26.6
[~2021-04-22 12:53] MED LIST changes: +ACETAMINOPHEN TAB 500 MG TAB PO PRN; +DEXAMETHASONE SOD PHOSPHATE 4 MG/ML 1 ML VIAL IV ONE; -LACTATED RINGERS 1,000 ML IV SCH; +MELOXICAM 7.5 MG TAB PO PRN; +ONDANSETRON 4 MG/2 ML VIAL IVP PRN; +TRANEXAMIC ACID 1,000 MG in SODIUM CHLORIDE 0.9% 100 ML IVPB PRN
[2021-04-22] MEDS: LACTATED RINGERS 1,000 ML IV SCH ×2 (14:08→20:34)
[2021-04-22] MEDS ORDERED: fentaNYL (PF) 50 MCG/ML 5 ML AMP IVP ONE (14:41)
[2021-04-22] MEDS ORDERED: MIDAZOLAM 2 MG/2 ML VIAL IVP ONE (14:41)
[2021-04-22] MEDS ORDERED: MIDAZOLAM 2 MG/2 ML VIAL ONE (15:07)
[2021-04-22] MEDS ORDERED: LIDOCAINE 1% INJ 10MG/ML (20 ML MDV) ONE (15:07)
[2021-04-22] MEDS ORDERED: .fentaNYL (PF) 50 MCG/ML 2 ML AMP ONE (15:07)
[2021-04-22] MEDS ORDERED: ROPIVACAINE 5 MG/ML 30 ML VIAL ONE (15:07)
[2021-04-22] MEDS ORDERED: TRANEXAMIC ACID 1,000 MG/10 ML VIAL ONE (15:07)
[2021-04-22] MEDS ORDERED: PROPOFOL 10 MG/ML 20 ML VIAL IV ONE (15:07)
[2021-04-22] MEDS ORDERED: SODIUM CHLORIDE 0.9% (PF) 10 ML VIAL ONE (15:07)
[2021-04-22] MEDS ORDERED: SODIUM CHLORIDE 0.9% 100 ML BAG ONE (15:07)
[2021-04-22] MEDS ORDERED: SUCCINYLCHOLINE CHLORIDE 100 MG/5 ML SYR IV ONE (15:07)
[2021-04-22] MEDS ORDERED: LACTATED RINGERS 1,000 ML IV ONE (16:29)
--- NOTE | 2021-04-22 16:44 | P.OP ---
Date of Procedure: 04/22/21 Procedure(s) Performed: PREOPERATIVE DIAGNOSIS: Right knee severe osteoarthritis POSTOPERATIVE DIAGNOSIS: Right knee severe osteoarthritis OPERATION: Right knee cemented total replacement arthroplasty. ANESTHESIA: General and regional ESTIMATED BLOOD LOSS: 100 ml. LAND RESOURCE SPECIALIST: Beata Art PA-C (assistance with: patient positioning, retraction, exposure, hemostasis, leg positioning, implantation, irrigation, closure, dressing) COMPLICATIONS: None apparent. COMPONENTS IMPLANTED: Journey II BCS total knee system from [employer], [facility] INDICATIONS: Melvina is a 70 year old female with a history of right knee osteoarthritis. The patient's knee is end-stage, and conservative management has failed. The operation of knee replacement has been discussed at length in the office, as well as potential risks and complications. These are inclusive of, but not limited to: bleeding, infection, scarring, discomfort, blood vessel and nerve damage, need for further surgery, failure to relieve symptoms, persistence, recurrence, or worsening of problems, loosening, dislocation, wear, blood clot, pulmonary embolism, , gait dysfunction, stiffness, and other risks as discussed in the office. The patient elects to proceed and the consent form has been signed. PROCEDURE: The patient was taken to the operating room and positioned on the operating room table in the supine position. Anesthesia was initiated. Care was taken to make sure that all pressure points were adequately padded. The operative lower extremity was prepped and draped in the usual aseptic fashion using ChloraPrep. Ioban drape was used for the case and the patient received intravenous antibiotics within one hour of the incision. A pneumotourniquet and leg portillo were used for the case. The limb was exsanguinated with an Esmarch bandage and the tourniquet was inflated to 300 mmHg. Time-out was called confirming the patient's identity, side, procedure and administration of antibiotics and tranexamic acid. The incision was then created midline directly over the right knee, carried down through skin and into the subcutaneous tissues and down to fascia. Full thickness subcutaneous medial flap was developed. Medial parapatellar arthrotomy was performed and the interior of the knee was inspected. There was end-stage osteoarthritis of the knee with no significant sagittal plane deformity. The fat pad was excised and proximal medial release on the tibia was completed using meticulous dissection and a curved osteotome. The anterior cruciate ligament was taken down. Note was made of significant attrition of the anterior and significant degenerative appearance of the cruciate ligaments. The exposure was excellent. The knee was flexed 90 degrees and the patella was everted. The [employer] pre- made distal cutting block was attached and pinned into position. The planned cut was analyzed visually and with the alignment evelyne and found to be satisfactory without the need for any adjustment. The oscillating saw was then used to make the distal femoral cut and make the alignment holes for the 5 in 1 block. This cut was confirmed to be flat with the flat end of an osteotome. The 5 in 1 block was then used to create the anterior posterior condylar resections and the chamfer cuts. The retractors were placed around the tibia and the tibial surface was addressed. The [employer] pre-made guide was placed onto the exposed tibial surface and pinned into position to david the rotational alignment. The alignment of the guide was checked for depth of plannned resection, slope, and varus valgus. Guide was confirmed to be in good position and the tibial cut was then created with protection of the posterior neurovascular structures and the collateral ligaments. The tibial cut surface was removed and sized. Spacer block technique was then used to confirm that the flexion and extension gaps were equal. Soft tissue releases and adjustment of the tibial and/or femoral cuts were made, as necessary, until the gaps were equal. This included release of the posterior cruciate ligament, which was excessively tight in this patient. The trial components were inserted. The tibial tray was allowed to self center and the patella was noted to track very well. The position of the tibial component was marked and noted to be nearly exactly aligned with the pre-drilled holes from the [employer] guide. The tibia was then finished for a stemmed tibial component. Patellar resurfacing was performed using a reamer. The size of the required patellar component was estimated and the patellar surface was then reamed down to a residual thickness which would recreate the [place] thickness with the component. The exact placement of the patellar component was adjusted for position based on preoperative x-rays and intraoperative findings. Trial components were removed and the cut surfaces of the bone were pulse lavaged thoroughly and dried. Cement was mixed on the back table and applied to the final components. Cement was then applied to the tibial surface and pressurized into the surface using finger pressurization technique. The tibial component was then applied and excess cement was removed after it was impacted securely and noted to be flush with the cut surface. In similar fashion, the cement was applied to the cut femoral surface, pressurized in using finger pressurization and the component was impacted into place. Excess cement was removed. The polyethylene spacer was then implanted and locked into position. The patellar component was then applied in similar technique and a patellar clamp was used to hold the patella in place as the cement hardened. Once the cement had fully hardened, the knee was reinspected. Any other cement extrusion was removed and final kinematic testing showed range of motion from 0 to 130 degrees with excellent stability, both medially and laterally and appropriate alignment of the leg. Patellar tracking was excellent. The knee was then thoroughly pulse lavaged with normal saline. The tourniquet was deflated and hemostasis was obtained with electrocautery and IV tranexamic acid, 1 g given at the start of the operation and 1 g at the start of closure. Closure was with #2 Ethibond in the fascia/capsule and supplemented with #2 Quill, 2-0 Vicryl suture was used for the subcutaneous tissues and 3-0 Quill for the skin. Dermabond/Steri-Strips were then applied. A lightly compressive dressing was applied using Webril and an Jens wrap. The patient was then transferred to stretcher and taken to the recovery room in stable condition. Sponge and needle counts were correct.
[2021-04-22] MEDS ORDERED: ROPIVACAINE 0.2%-NS ON-Q PUMP 1,090 MG, EMPTY PAIN BALL 1 EACH MISCELLANE PRN (16:48)
--- NOTE | 2021-04-22 16:52 | P.ANPRN ---
Procedure Note - Anesthesia - Nerve Block Performed Right Adductor Canal Time Out Performed: Yes (14:41) Date of Procedure: 04/22/21 Procedure Start Time: 14:41 Procedure Stop Time: 14:53 Location of Patient: PreOp Indication: Acute Post-Operative Pain, Requested by Surgeon (Dr Severino) Sedation Type: Sedate with meaningful contact maintained Preparation: Sterile Prep, Sterile Dressing Position: Supine Catheter: Indwelling Needle Types: Pajunk Needle Gauge: 21 Ultrasound used to visualize needle placement: Yes Ultrasound used to observe medication spread: Yes Injectate: 0.5% Ropivacaine (see comment for volume) (15cc) Blood Aspirated: No Pain Paresthesia on Injection Noted: No Resistance on Injection: Normal Image Stored and Saved: Yes Events: Uneventful and Well Tolerated
--- NOTE | 2021-04-22 16:53 | P.ANPRN ---
Procedure Note - Anesthesia - Nerve Block Performed Right iPack Time Out Performed: Yes Date of Procedure: 04/22/21 Procedure Start Time: 14:54 Procedure Stop Time: 15:04 Location of Patient: PreOp Indication: Acute Post-Operative Pain, Requested by Surgeon (Dr Severino) Sedation Type: Sedate with meaningful contact maintained Preparation: Sterile Prep Position: Supine Catheter: None Needle Types: Pajunk Needle Gauge: 21 Ultrasound used to visualize needle placement: Yes Ultrasound used to observe medication spread: Yes Injectate: 0.5% Ropivacaine (see comment for volume) (15cc + 5cc PF Normal saline) Blood Aspirated: No Pain Paresthesia on Injection Noted: No Resistance on Injection: Normal Image Stored and Saved: Yes Events: Uneventful and Well Tolerated
[2021-04-22] MEDS ORDERED: ONDANSETRON 4 MG/2 ML VIAL IVP ONE (17:12)
[2021-04-22] MEDS: HYDROmorphone 0.5 MG/0.5 ML SYRINGE IVP PRN ×2 (17:14→17:32)
[2021-04-22] MEDS ORDERED: KETOROLAC 30 MG/ML 1 ML VIAL ONE (17:14)
[2021-04-22] MEDS ORDERED: ONDANSETRON 4 MG/2 ML VIAL ONE (17:15)
[2021-04-22] MEDS ORDERED: KETOROLAC 15 MG/ML 1 ML VIAL IVP ONE (17:16)
--- NOTE | 2021-04-22 17:44 | XR ---
EXAMINATION TYPE: XR knee limited RT DATE OF EXAM: 04/22/2021 COMPARISON: None HISTORY: Postop knee surgery TECHNIQUE: 2 views FINDINGS: There is right knee prosthesis. Components appear in anatomic position. IMPRESSION: No complicating process seen.
[2021-04-22] MEDS ORDERED: ceFAZolin 2 GM in SODIUM CHLORIDE 0.9% 100 ML IVPB ONE (19:00)
[2021-04-23 01:51] VITALS: PULSE 66
[2021-04-23 05:05] VITALS: BP 98/62; RESP 18; TEMP 97.7
--- NOTE | 2021-04-23 09:06 | P.DS ---
Providers Expected date of discharge: 04/23/21 Attending physician: Ambrose Severino Primary care physician: Bernabe Carrion - Discharge Diagnosis(es) (1) Osteoarthritis of right knee Current Visit: Yes Status: Acute (2) S/P total knee arthroplasty Current Visit: Yes Status: Acute Hospital Course: This is a 70-year-old female with known history of degenerative arthritis of the right knee. The patient presented for evaluation as an outpatient. After discussion and consideration patient elects to proceed with total knee arthroplasty. The patient is seen preoperatively by Dr. Severino and medically cleared for surgery by their primary care physician. Patient is admitted to [facility] on 04/22/2021 for total knee arthroplasty. The procedure is performed without complication or sequelae. The patient is doing well postoperatively. Labs and vital signs are stable on day of discharge. On day of discharge patient's knee incision is healing well. There is minimal erythema. There is no drainage noted at this time. There is minimal soft tissue swelling to the knee. Patient has full foot and ankle motion without difficulty or pain. Calf is soft and nontender to palpation. Neurovascular status to the right lower extremity is intact. Patient is discharged home in good condition. Opioid start talking form is reviewed and signed. Please see med rec for accurate list of home medications. Plan - Discharge Summary Discharge Rx Participant: Yes New Discharge Prescriptions: New Aspirin [Adult Low Dose Aspirin EC] 81 mg PO BID #1 tab Ondansetron Odt [Zofran Odt] 4 mg PO Q8HR PRN #14 tab PRN Reason: Nausea Meloxicam [Mobic] 1 - 2 tab PO DAILY PRN #60 tab PRN Reason: Pain Gabapentin [Neurontin] 300 mg PO BID 5 Days #10 cap HYDROcodone/APAP 7.5-325MG [Tolono 7.5-325] 1 - 2 tab PO Q6HR PRN #32 tab PRN Reason: Pain Sennosides-Docusate Sodium [Senokot-S] 1 tab PO BID #60 tablet No Action Potassium 99 mg PO DAILY Multivitamins, Thera [Multivitamin (formulary)] 1 tab PO DAILY Cholecalciferol (Vitamin D3) [Vitamin D3] 50 mcg PO DAILY Calcium Carbonate [Calcium] 600 mg PO BID Triamterene-Hctz 37.5-25Mg [Dyazide 37.5-25 Capsule] 1 cap PO DAILY Turmeric Root Extract [Turmeric] 1,000 mg PO DAILY Glucosam/Sixto-Msm1/C/Ziyad/Bosw [Glucosamine-Chondroitin Tablet] 2 each PO DAILY Cinnamon Bark [Cinnamon] 2,000 mg PO BID Ferrous Sulfate [Iron (65 MG Elemental)] 18 mg PO DAILY Pregabalin [Lyrica] 100 mg PO TID Magnesium 400 mg PO DAILY Triamcinolone 0.5% Cream [Kenalog 0.5% Cream] 1 applic TOPICAL BID PRN PRN Reason: Skin Irritation Cyanocobalamin (Vitamin B-12) [Vitamin B-12] 1,000 mcg PO DAILY Ascorbic Acid [Vitamin C] 1,000 mg PO DAILY Chlorhexidine Gluconate [Periogard] 15 ml PO BID Ubidecarenone [Co Q-10] 300 mg PO DAILY Collagen 1000 6,000 mg PO DAILY Vitamin E 180 unit PO DAILY Discharge Medication List Calcium Carbonate [Calcium] 600 mg PO BID 02/11/19 [History] Cholecalciferol (Vitamin D3) [Vitamin D3] 50 mcg PO DAILY 02/11/19 [History] Multivitamins, Thera [Multivitamin (formulary)] 1 tab PO DAILY 02/11/19 [History] Potassium 99 mg PO DAILY 02/11/19 [History] Triamterene-Hctz 37.5-25Mg [Dyazide 37.5-25 Capsule] 1 cap PO DAILY 02/11/19 [History] Cinnamon Bark [Cinnamon] 2,000 mg PO BID 06/08/20 [History] Glucosam/Sixto-Msm1/C/Ziyad/Bosw [Glucosamine-Chondroitin Tablet] 2 each PO DAILY 06/08/20 [History] Turmeric Root Extract [Turmeric] 1,000 mg PO DAILY 06/08/20 [History] Ferrous Sulfate [Iron (65 MG Elemental)] 18 mg PO DAILY 07/03/20 [History] Pregabalin [Lyrica] 100 mg PO TID 07/03/20 [History] Collagen 1000 6,000 mg PO DAILY 01/18/21 [History] Magnesium 400 mg PO DAILY 01/18/21 [History] Ubidecarenone [Co Q-10] 300 mg PO DAILY 01/18/21 [History] Ascorbic Acid [Vitamin C] 1,000 mg PO DAILY 04/18/21 [History] Chlorhexidine Gluconate [Periogard] 15 ml PO BID 04/18/21 [History] Cyanocobalamin (Vitamin B-12) [Vitamin B-12] 1,000 mcg PO DAILY 04/18/21 [History] Triamcinolone 0.5% Cream [Kenalog 0.5% Cream] 1 applic TOPICAL BID PRN 04/18/21 [History] Vitamin E 180 unit PO DAILY 04/18/21 [History] Aspirin [Adult Low Dose Aspirin EC] 81 mg PO BID #1 tab 04/22/21 [Rx] Gabapentin [Neurontin] 300 mg PO BID 5 Days #10 cap 04/22/21 [Rx] HYDROcodone/APAP 7.5-325MG [Tolono 7.5-325] 1 - 2 tab PO Q6HR PRN #32 tab 04/22/21 [Rx] Meloxicam [Mobic] 1 - 2 tab PO DAILY PRN #60 tab 04/22/21 [Rx] Ondansetron Odt [Zofran Odt] 4 mg PO Q8HR PRN #14 tab 04/22/21 [Rx] Sennosides-Docusate Sodium [Senokot-S] 1 tab PO BID #60 tablet 04/22/21 [Rx] Follow up Appointment(s)/Referral(s): Beata Art, BUDDY [PHYSICIAN MANAGER FOOD BEVERAGE] - 2 Weeks Patient Instructions/Handouts: *Surgery [facility] - On-Q Pain Pump Discharge I nstructions, Precautions after Total Joint Replacement Surgery (DC), Knee Replacement (DC) Activity/Diet/Wound Care/Special Instructions: May bear wt as tolerated w walker. Keep Optifoam dressing intact 7 days. May shower 48h post op. Discharge Disposition: HOME SELF-CARE
== END 2021-04-23 12:08 | disposition home or self-care (01) ==
LOC: OR 12:53 → 5NMEDONC 16:57 → OR 04-23 12:08
PROVIDERS: ATTEND Orthopaedic Surgery
DX: M17.11 Unilateral primary osteoarthritis, right knee (principal); I10 Essential (primary) hypertension; Z79.899 Other long term (current) drug therapy; G47.33 Obstructive sleep apnea (adult) (pediatric)
CPT/HCPCS: 97162; 64999; 64448; 76942; 88300; 87635; 73560; 27447; C1713; C1776; J2250; J1100; J0690; J2405; J2001; J3010 ×2; J2795 ×2; J1885; J0330; J2704; J1170

== ENCOUNTER → 2021-08-08 | Outpatient (CLI) | payer MEDICARE ==
--- NOTE | 2021-08-08 16:03 | SFUN ---
SLEEP CENTER FOLLOW UP NOTE DATE OF SERVICE: 08/08/2021. 70-year-old lady has been followed in Sleep Center for treatment of obstructive sleep apnea-hypopnea syndrome. The patient continues to use her CPAP equipment every night for the whole night. Sleep is well according to the patient. [place] Sleepiness Scale is 6, which is in normal range. I checked her CPAP unit, pressure is 8 cm of water. Usage is 100% of nights. Average usage is 7.1 hours per night. Leak is 6 L per minute, which is normal range. Apnea- hypopnea index 6.2, slightly increased comparing with the previous visit when it was 3.1. MEDICATIONS: Triamterene hydrochlorothiazide 37.5/25 mg once a day, pregabalin 100 mg 3 times a day. Nutritional supplements including multivitamins, iron, magnesium, potassium, turmeric extract, vitamin E. PHYSICAL EXAMINATION: GENERAL: Patient in no distress. BP 139/67, HR 68, RR 16, weight 164.4. The patient lost about 10 pounds since previous visit. Temperature 96.2, oxygen saturation at room air 96%. Height 5 feet 7 inches. Oropharynx: Low position of soft palate, Mallampati 3. NECK: Supple, no JVD. Thyroid is not palpable. LUNGS: Clear to percussion and to auscultation. Good air exchange. No wheezing or rhonchi. HEART: S1, S2 regular. No murmurs, gallops, or rubs. ABDOMEN: Soft and nontender. Bowel sounds are present. No organomegaly appreciated. EXTREMITIES: No clubbing or cyanosis. INDUSTRIAL MILLWRIGHT: Awake, alert, and oriented X3. Cranial nerves 2 to 7 intact. There is no fasciculation or atrophy. noted. No focal deficits observed. IMPRESSION: 1. Obstructive sleep apnea-hypopnea syndrome patient demonstrated 100% compliance with treatment benefitting from treatment. Apnea-hypopnea index slightly increased to 6.2 at the present time. 2. Hypertension. 3. Back problems. 4. History of insomnia. 5. History of herniated disk on the back. 6. Status post left knee replacement. 7. Status post right arm tendon arthroplasty in 2020. PLAN: 1. I changed regimen in the machine to automatic, range of the pressure 5-10 cm of water. 2. Patient will continue to use PAP equipment every night for the whole night. 3. Sleep hygiene with regular time in bed for at least 7-1/2 to 8 hours. 4. Precautions related to driving. No driving if feeling sleepiness. 5. I will maintain all necessary prescription for PAP supplies including mask, tube, filters. 6. Watching weight. 7. Follow-up visit in 6 months or earlier if patient has any problems. Thank you very much for allowing me to participate in management of your patient. Sincerely, Heraclio Pink MD, PhD, FAASM Diplomat of [employer] Sleep Medicine Board of [place] [employer] Meter Calibrator of [facility] [place] MMODL / KASHN: [id number] /
== END ==
LOC: SLEEP 13:21
PROVIDERS: ATTEND Internal Medicine
DX: G47.33 Obstructive sleep apnea (adult) (pediatric) (principal); I10 Essential (primary) hypertension; Z99.89 Dependence on other enabling machines and devices; M53.80 Other specified dorsopathies, site unspecified; Z87.39 Personal history of other diseases of the musculoskeletal system and connective tissue; Z96.652 Presence of left artificial knee joint; Z98.890 Other specified postprocedural states

== ENCOUNTER → 2021-12-16 | Outpatient (CLI) | payer MEDICARE ==
--- NOTE | 2021-12-17 15:34 | MM ---
Reason for Exam: Screening (asymptomatic). Last mammogram was performed 1 year(s) and 8 month(s) ago. Patient History: Menarche at age 15. First Full-Term at age 29. Postmenopausal. 12/02/2004, Core Biopsy on the Right side. 12/02/2004, MG discontinued stereo core RT on the right side. Risk Values: Abril 5 year model risk: 2.2%. NCI Lifetime model risk: 7.2%. Prior Study Comparison: 10/27/2017 Bilateral Screening Mammogram, [facility]. 01/20/2019 Bilateral Screening Mammogram, [facility]. 04/23/2020 Bilateral Screening Mammogram, [facility]. Tissue Density: There are scattered fibroglandular densities. Findings: Analyzed By CAD. There is a chronic nodule within the inferior left breast, present previously No suspicious groups of microcalcifications, spiculated or lobular masses, architectural distortion or other secondary signs of malignancy are mammographically apparent. Overall Assessment: Benign, BI-RAD 2 Management: Screening Mammogram of both breasts in 1 year. A negative mammogram report should not preclude additional follow up of suspicious palpable abnormalities. Patient should continue monthly self breast exam. A clinical breast exam by your physician is recommended on an annual basis and results should be correlated with mammographic findings. Electronically signed and approved by: Lev Conrad D.O. Radiologis
== END | disposition home or self-care (01) ==
LOC: RADMAMWWP 16:54
PROVIDERS: ATTEND Internal Medicine Geriatric Medicine
DX: Z12.31 Encounter for screening mammogram for malignant neoplasm of breast (principal); Z78.0 Asymptomatic menopausal state
CPT/HCPCS: 77063; 77067

== ENCOUNTER → 2022-01-23 | Outpatient (CLI) | payer MEDICARE ==
[2022-01-23 14:31] VITALS: BP 134/64; PULSE 57; RESP 18
--- NOTE | 2022-01-23 14:41 | P.PN ---
Subjective Progress Note Date: 01/23/22 This is a 71-year-old lady with history of chronic lower back pain with rad iation to the mid thigh area on the left side and to the right hip area on the right side. The patient had very good results from the last lumbar medial branch RFA which was done about one year ago until recently and now she is complaining of increasing pain in her lower back with radiation to both sides as mentioned above . this pain is worse especially in the morning. She takes Lyrica 100 mg 3 times a day. Patient denies new-onset weakness, bowel/bladder incontinence, or any other signs or symptoms of cauda equina syndrome. There are no signs of acute intoxication, and no indications of medication diversion or overuse. In addition to above, 13-point review of systems is also negative for chest pain, shortness of breath, changes in vision, changes in hearing, new onset weakness, abdominal pain, diarrhea, extreme fatigue, malaise, fever, skin changes, homicidal or suicidal ideation, or bowel or bladder incontinence. Vital Signs: Reviewed in EMR Gen: AAOx3, NAD HEENT: PERRLA,hearing grossly normal Pulm: resp unlabored Neck: supple, trachea midline Neuro exam of the lower extremities: Mildly decreased muscle strength to 4 out of 5 in the major muscle groups in the lower extremities. Straight leg raising test: Negative bilaterally Jw's test: Range of motion of the lumbar spine: Facet loading test: Positive on the lumbar area Tenderness in the paravertebral musculature: Positive tenderness in the lumbar paravertebral musculature bilaterally Neuro: CN II-XII grossly intact, Imaging: Reviewed in EMR/chart Assessment: Lumbar spondylosis without myelopathy Yamile ROCK Plan: 1. Explanation: When patients on opioids, opioid and psychological risk scores were reviewed. Diagnoses, prognoses, and multiple treatment options including but not limited to physical therapy, interventional therapies, adjuvant medical therapies, narcotic medication therapies, and surgery were discussed with the patient and all questions were answered to the patient's satisfaction. 2. Opioid agreement:When patients are prescribed opoids through our clinic, opioid agreement is signed with the patient and the patient is warned not to use opioids while driving or before driving and not to combine opioids with benzodiazepines or alcohol. 3. Counseling: When patient is smoking or obese, the patient was counseled extensively on SMOKING CESSATION, BODY MASS INDEX, EXERCISE. Specifically, the patient was instructed regarding the importance of smoking cessation, obesity, and exercise in the context of both chronic pain and overall health. 4. Procedures: We'll schedule for lumbar medial branch RFA for levels L4 5 and L5-S1 bilaterally under fluoroscopic guidance 5. Consultations: None 6. Investigations: None 7. Medications: None prescribed 8. Disposition: Proceed with the above-mentioned procedure as soon as possible. 9. Maps were reviewed and were appropriate. Objective - Vital Signs Vital signs: Vital Signs Temp Pulse 57 L 01/23/22 14:26 Resp 18 01/23/22 14:26 BP 134/64 01/23/22 14:26 Pulse Ox 97 01/23/22 14:26 FiO2 Intake & Output 01/22/22 01/23/22 01/23/22 18:59 06:59 18:59 Weight 77.111 kg
== END ==
LOC: PNWHC3 14:12
PROVIDERS: ATTEND Anesthesiology
DX: M47.816 Spondylosis without myelopathy or radiculopathy, lumbar region (principal)
CPT/HCPCS: 99211

== ENCOUNTER → 2022-02-20 | Outpatient (CLI) | payer MEDICARE ==
--- NOTE | 2022-02-20 13:54 | P.PN ---
Subjective DATE: 02/20/2022 FOLLOW UP VISIT. Patient with obstructive sleep apnea hypopnea syndrome return to sleep center for follow-up visit. Information from previous visit have been reviewed. Patient is using PAP equipment every night for the whole night, getting PAP supplies in time. The patient does not have significant problems with the mask, PAP unit and humidification. [place] sleepiness scale is 7, which is normal. I checked PAP unit. PAP unit pressure 5-10, average 9.9 cm H2O. I changed pressure during previous visit because apnea-hypopnea index was increased to 6.2. Usage is 100 % for more then 4 hours, average 7.6 hours per night. Leak is 4 l/m, which is in acceptable range. Apnea Hypopnea Index is 2.1, which is normal. According to patient she still has episodes of snoring while using CPAP. MEDICATIONS:1. Triamteren/hydrochlorothiazide 37.5-25 mg once a day 2. . Pregabalin 100 mg 3 times a day 3. Supplements including multivitamins, iron, magnesium, potassium, vitamin E During physical exam: GENERAL: A pleasant patient without any distress. VITAL SIGNS: BP 140/79, HR 63, RR 16 , weight 179.8, patient increased to wait on 15 pounds comparing to the previous visit, temperature 97.0, oxygen saturation at room air 97 % . HEENT: PERRLA, EOMI.low position of soft palate, Mallapati 3 . NECK: Supple. No JVD. LUNGS: Clear to percussion and to auscultation. Good air exchange. No wheezing or rhonchi. HEART: S1, S2 regular. ABDOMEN: Soft and nontender.[] EXTREMITIES: No clubbing or cyanosis. EMERGENCY COMMUNICATIONS OFFICER: Awake, alert, and oriented x3. No focal deficit. Impressions: 1. Obstructive sleep apnea-hypopnea syndrome. Patient demonstrated great compliance with treatment, benefiting from treatment. Apnea hypopnea index normalized after corrections which was done during previous visit, but patient still has episodes of snoring. 2. Patient increased to wait on or around 15 pounds comparing to the previous visit.. 3. Hypertension. 4. Back problems. 5. History of insomnia. 6. History of herniated disc on the back. 7. Status post left knee replacement. 8. Status post right arm tendon arthroplasty in 2020. Plan: 1. Continue using PAP equipment every night for the whole night. I increased range of the pressure to AutoPAP 5-13 centimeters of water. 2. To change air filter at least 1-2 times per month. 3. PAP unit should stay lower then position of the head. 4. Advised patient to remove all remaining water from humidifier canister daily and make it dry after each usage. Refill canister with fresh distilled water before each usage. 5. Sleep hygiene with regular time in bed for at least 8 hours. 6. Precautions related to driving. No driving if feel any sleepiness. 7. I will maintain prescription for PAP supplies including mask, tube, filters. 8. Follow up visit in 6 months or earlier if patient has any problems. 9. Watching and losing weight. Thank you very much for allowing me to participate in the management of your patient. Heraclio Pink MD, PhD, FAASM. Diplomat of [place] [employer], Sleep Medicine Board by [place] [employer] Barrel Washer of [facility] [place]
== END ==
LOC: SLEEP 13:16
PROVIDERS: ATTEND Internal Medicine
DX: G47.33 Obstructive sleep apnea (adult) (pediatric) (principal); I10 Essential (primary) hypertension; M51.26 Other intervertebral disc displacement, lumbar region; Z96.652 Presence of left artificial knee joint; Z87.898 Personal history of other specified conditions; Z99.89 Dependence on other enabling machines and devices; Z96.611 Presence of right artificial shoulder joint
CPT/HCPCS: 99212

== ENCOUNTER 2022-02-28 09:51 | Day surgery (SDC) | payer MEDICARE ==
[2022-02-27 08:48] VITALS: BMI 26.6
[~2022-02-28 09:51] MED LIST changes: -ACETAMINOPHEN TAB 500 MG TAB PO PRN; -DEXAMETHASONE SOD PHOSPHATE 4 MG/ML 1 ML VIAL IV ONE; +LACTATED RINGERS 1,000 ML IV SCH; -MELOXICAM 7.5 MG TAB PO PRN; -ONDANSETRON 4 MG/2 ML VIAL IVP PRN; -TRANEXAMIC ACID 1,000 MG in SODIUM CHLORIDE 0.9% 100 ML IVPB PRN
[2022-02-28 10:20] VITALS: RESP 16; TEMP 97.6
[2022-02-28] MEDS ORDERED: LACTATED RINGERS 1,000 ML IV ONE (10:24)
[2022-02-28] MEDS ORDERED: MIDAZOLAM 2 MG/2 ML VIAL ONE (10:30)
[2022-02-28] MEDS ORDERED: fentaNYL (PF) 50 MCG/ML 2 ML AMP ONE (10:30)
[2022-02-28] MEDS ORDERED: ROPIVACAINE 5 MG/ML 20 ML AMPULE ONE (10:30)
[2022-02-28] MEDS ORDERED: IV FLUID CONTINUATION 1,000 ML IV ONE (10:42)
--- NOTE | 2022-02-28 10:54 | P.PCN ---
Date of Procedure: 02/28/22 Description of Procedure: PREOPERATIVE DIAGNOSIS: Lumbar Facet Arthropathy without myelopathy POSTOPERATIVE DIAGNOSIS: Same PROCEDURES: Bilateral Radiofrequency thermocoagulation of L4-5, L5-S1 medial branches, with fluoroscopic guidance ANESTHESIA: Per anesthesia records Imaging: Fluoroscopy was used, images where saved to the medical record PROCEDURE INDICATION: The patient with low back pain secondary to lumbar facet arthropathy who had more than 50% relief of pain with previous diagnostic lumbar medial branch block with local anesthetic. PROCEDURE DESCRIPTION / TECHNIQUE: The patient was seen and identified in the preoperative area. Risks, benefits, complications, including but not limited to risk of infection, bleeding, allergic reactions to the medications and no complete pain relief, and alternatives were discussed with the patient, the patient agreed to proceed with the procedure and signed the consent. IV was started. Vital signs remained stable throughout the procedure. Patient was taken to the OR and time out was completed. The patient was placed in the prone position on the procedure table. The lumber area was prepped and draped in the usual sterile fashion. Vital signs were closely monitored during the procedure. IV sedation was used during the procedure to decrease patient anxiety. Using AP and then oblique fluoroscopy, the eye of the Henry dog corresponding to the connection between the superior and transverse articular processes of L4, L5, and sacral Ala were identified, marked, and localized with 1% lidocaine. S ubsequently, a 20 guage 150-mm radiofrequency cannula with a 10-mm active tip was advanced guided by fluoroscopy to the junction of the pedicle and transverse process of each identified level. Each site then underwent sensory testing at 50 Hz and 0 to 1 volt and motor testing at 2.5 Hz and 0 to 3 volt with local stimulation, no radicular symptoms sensed by the patient and no obvious motor stimulation noted. Thereafter the tested sites underwent radiofrequency thermocoagulation at 80 degrees celsius for 90 seconds after injecting 1 ml of PF lidocaine 1%. Then after the thermocoagulation was done, 1 ml of the block solution containing ropivaciane 0.5% was injected at the lesioned sites after negative aspiration of CSF and blood and with no paresthesias. Cannulas were retracted. At the end of the procedure, the skin was cleansed and bandages were applied. COMPLICATIONS: No acute complications. DISPOSITION / PLANS: The patient was placed in a supine position and transferred to the recovery area in a stable condition for observation and was discharged from the recovery room after meeting discharge criteria. Home discharge instructions given to the patient by the staff. The patient was reexamined prior to discharge. Patient will follow up as directed.
[2022-02-28 11:20] VITALS: BP 118/58; PULSE 53
--- NOTE | 2022-02-28 11:48 | FL ---
Fluoroscopy INDICATION: Pain FINDINGS: Fluoroscopy time: 01/25/2021 seconds. Images obtained: 6. IMPRESSIONS: 1. Documentation of fluoroscopy.
== END 2022-02-28 11:37 | disposition home or self-care (01) ==
LOC: ORPAIN 09:51
PROVIDERS: ATTEND Hospitalist
DX: M47.816 Spondylosis without myelopathy or radiculopathy, lumbar region (principal); I10 Essential (primary) hypertension; G47.33 Obstructive sleep apnea (adult) (pediatric); M19.90 Unspecified osteoarthritis, unspecified site; G43.909 Migraine, unspecified, not intractable, without status migrainosus; Z79.1 Long term (current) use of non-steroidal anti-inflammatories (NSAID); Z79.82 Long term (current) use of aspirin; Z79.891 Long term (current) use of opiate analgesic; Z79.899 Other long term (current) drug therapy
CPT/HCPCS: 64635; 64636; J2250; J3010; J2795

== ENCOUNTER → 2022-03-20 | Outpatient (CLI) | payer MEDICARE ==
[2022-03-20 11:32] VITALS: BP 124/81; PULSE 57; RESP 18; TEMP 97.9
--- NOTE | 2022-03-20 15:04 | P.PAINPG ---
Objective - Vital Signs Vital signs: Intake & Output 03/19/22 03/20/22 03/20/22 18:59 06:59 18:59 Weight 81.647 kg PQRS Measure Charge Sheet Comment: A 71 yr old female with a history of severe and chronic low back pain secondary to lumbar degenerative disc diseases and lumbar spondylosis with facet arthropathy without myelopathy presents today for evaluation s/p BL RFA L3-L5. Pt states she experienced 60% pain relief s/p procedure. Pain level is currently at 4/10 in intensity, constant, localized in lower lumbar spine, dull in character w shooting towards BL buttocks. Pain is provoked by climbing stairs. Pain is alleviated with PT years ago, massage monthly x 2 yrs, chirproactic treatments 3 yrs ago, heat, ice, medications (Aleve OTC, Ibuprofen, Lyrica), reclining, repositioning and rest. Interventional pain procedures completed include BL RFA L3-L5 Patient is currently on Ibuprofen, Aleve OTC, Lyrica Patient denies any side effects of the medication(s), denies excessive drowsiness or sleepiness, denies suicidal ideation and reports that the current pain medication is helping to control the pain and improve activities of daily living. Patient denies any motor or sensory deficits. Patient denies any fever or night sweats, denies any change in the bowel movements or urination. Physical Examination: -Constitutional: Cooperative. Not in acute distress . - Neurologic: Cranial nerve II to XII intact. No focal neurological deficits. - Psychatric: Alert & oriented x 3. Matching mood & appropriate affect. Judgment and insight intact. - Musculoskeletal: Cervical spine: Muscle bulk/ tone/ strength in the bilateral upper extremities normal Vertebral body tenderness to palpation over Spurling test positive Distraction test positive Facet loading test positive Thoracic spine Muscle bulk / tone/ strength in the bilateral paraspinal muscles normal Vertebral body tender to palpation over Facet loading test positive Lumbar spine: Motor bulk/ tone/ strength lower extremities , thigh and legs : 5/5 Deep tendon reflexes : Normal Knee Jerk. Normal Ankle Jerk . Vertebral body tenderness to palpation over BL paraspinal muscle spasms Lumbar Facet Loading Test positive Straight Leg Raise: positive at 30 degrees right side/ left side Gaenslen's Test positive Sacral spine : Severe tenderness over the Sacroiliac joint: right side / left side Range of motion: Flexion of the lumbar spine <60 degrees Range of motion: Extension of the lumbar spine <20 degrees Gaenslen's Test positive Jw's Test positive Chante test: positive right side / left side Thigh Thrust Test Sacral Thrust Test Assessment and plan: Chronic low back pain secondary to lumbar degenerative disc disease , lumbar spondylosis with facet arthropathy without myelopathy Recommendation of Flexeril 1-2 tabs PO QHS prn spasms. Pt exhibited sufficient and substantial pain relief s/p procedure, not withstanding muscle cramps and spasms from over activity. May return to our clinic on an as needed basis. Risks, benefits of procedure discussed and pt verbalized understanding. Denies anticoagulant use or medical history of diabetes. All patient questions answered I have spent less than 30 minutes on patient care today. Dr Billy was available by phone for the evaluation of this patient. The time was used to review the medical records including relevant urine studies and Prescription history (MAPs), review of the available imaging, evaluation and examination of the patient, coordination of care with the medical staff and if applicable referring physicians, as well as creation of the medical record PQRS Narrative: Smoking Status Never smoker Hx Alcohol Use (MH) Yes Home Medications: Ambulatory Orders Calcium Carbonate [Calcium] 600 mg PO BID 02/11/19 Cholecalciferol (Vitamin D3) [Vitamin D3] 50 mcg PO DAILY 02/11/19 Multivitamins, Thera [Multivitamin (formulary)] 1 tab PO DAILY 02/11/19 Potassium 99 mg PO DAILY 02/11/19 Triamterene-Hctz 37.5-25Mg [Dyazide 37.5-25 Capsule] 1 cap PO DAILY 02/11/19 Cinnamon Bark [Cinnamon] 2,000 mg PO BID 06/08/20 Glucosam/Sixto-Msm1/C/Izyad/Bosw [Glucosamine-Chondroitin Tablet] 2 each PO DAILY 06/08/20 Turmeric Root Extract [Turmeric] 1,000 mg PO DAILY 06/08/20 Ferrous Sulfate [Iron (65 MG Elemental)] 18 mg PO DAILY 07/03/20 Pregabalin [Lyrica] 100 mg PO TID 07/03/20 Collagen 1000 6,000 mg PO DAILY 01/18/21 Magnesium 400 mg PO DAILY 01/18/21 Ubidecarenone [Co Q-10] 300 mg PO DAILY 01/18/21 Ascorbic Acid [Vitamin C] 1,000 mg PO DAILY 04/18/21 Chlorhexidine Gluconate [Periogard] 15 ml PO BID 04/18/21 Cyanocobalamin (Vitamin B-12) [Vitamin B-12] 1,000 mcg PO DAILY 04/18/21 Triamcinolone 0.5% Cream [Kenalog 0.5% Cream] 1 applic TOPICAL BID PRN 04/18/21 Vitamin E (Dl,Tocopheryl Acet) [Vitamin E] 180 unit PO DAILY 04/18/21 Sennosides-Docusate Sodium [Senokot-S] 1 tab PO BID #60 tablet 04/22/21 Cyclobenzaprine [Flexeril] 5 mg PO HS PRN 30 Days #45 tab 03/20/22 Controlled Substance Measures - Controlled Substance Measures Is patient prescribed a controlled substance at discharge?: No
== END | disposition home or self-care (01) ==
LOC: PNWHC3 10:02
PROVIDERS: ATTEND Specialist
DX: M47.896 Other spondylosis, lumbar region (principal); M51.36 Other intervertebral disc degeneration, lumbar region
CPT/HCPCS: 99211

== ENCOUNTER → 2022-09-03 | Outpatient (CLI) | payer MEDICARE ==
--- NOTE | 2022-09-03 16:20 | P.PN ---
Subjective DATE: 09/03/2022 FOLLOW UP VISIT. Patient with obstructive sleep apnea hypopnea syndrome return to sleep center for follow-up visit. Information from previous visit have been reviewed. Patient is using PAP equipment every night for the whole night, getting PAP supplies in time. The patient does not have significant problems with the mask, PAP unit and humidification. [place] sleepiness scale is 5, which is normal. I checked information from PAP unit and explain it to the patient. PAP unit pressure 5-13, average 11 cm H2O. Usage is 100 % for more then 4 hours, average 7.7 hours per night. Leak is 4 l/m, which is in acceptable range. Apnea Hypopnea Index is 1.4, which is normal. MEDICATIONS:1. Triamterene/hydrochlorothiazide 37.5/25 mg once a day 2. Tumeric 3. Glucosamine 4. Iron supplement 5. , Calcium supplement During physical exam: GENERAL: A pleasant patient without any distress. VITAL SIGNS: BP 120/73, HR 80, RR 12 , weight 196, temperature 97.7, oxygen saturation at room air 98 % . HEENT: PERRLA, EOMI.low position of soft palate, Mallapati 3 . NECK: Supple. No JVD. LUNGS: Clear to percussion and to auscultation. Good air exchange. No wheezing or rhonchi. HEART: S1, S2 regular. ABDOMEN: Soft and nontender.[] EXTREMITIES: No clubbing or cyanosis. STAVE CUTTING SUPERVISOR: Awake, alert, and oriented x3. No focal deficit. Impressions: 1. Obstructive sleep apnea-hypopnea syndrome. Patient demonstrated great compliance with treatment, benefiting from treatment. 2. Mild obesity, body mass index 31.1, patient increased to wait on 16 pounds since previous visit. 3. Hypertension. 4. Status post left knee replacement. 5. Status post right arm tendon arthroplasty. 6. Back problems with history of herniated disc on the back. Plan: 1. Continue using PAP equipment every night for the whole night. 2. To change air filter at least 1-2 times per month. 3. PAP unit should stay lower then position of the head. 4. Advised patient to remove all remaining water from humidifier canister daily and make it dry after each usage. Refill canister with fresh distilled water before each usage. 5. Sleep hygiene with regular time in bed for at least 8 hours. 6. Precautions related to driving. No driving if feel any sleepiness. 7. I will maintain prescription for PAP supplies including mask, tube, filters. 8. Watching and losing weight. 9. Follow up visit in 6 months or earlier if patient has any problems. Thank you very much for allowing me to participate in the management of your patient. Heraclio Pink MD, PhD, FAASM. Diplomat of [place] [employer], Sleep Medicine Board by [place] [employer] Manufacturing Specialist of [facility] [place]
== END ==
LOC: SLEEP 15:34
PROVIDERS: ATTEND Internal Medicine
DX: G47.33 Obstructive sleep apnea (adult) (pediatric) (principal); E66.9 Obesity, unspecified; I10 Essential (primary) hypertension; Z68.31 Body mass index [BMI] 31.0-31.9, adult; Z79.899 Other long term (current) drug therapy; Z96.662 Presence of left artificial ankle joint; Z98.890 Other specified postprocedural states; Z99.89 Dependence on other enabling machines and devices
CPT/HCPCS: 99212

== ENCOUNTER → 2023-03-02 | Outpatient (CLI) | payer MEDICARE ==
--- NOTE | 2023-03-02 16:01 | BD ---
EXAMINATION TYPE: Axial Bone Density DATE OF EXAM: 03/02/2023 CLINICAL HISTORY: 72 years old Female. ICD-10 CODE: M81.0 OSTEOPOROSIS Height: 66 Weight: 198.4 FRAX RISK QUESTIONS: Alcohol (3 or more units per day): no Family History (Parent hip fracture): no Glucocorticoids (More than 3mos): no History of Fracture in Adulthood: no Secondary Osteoporosis: 1. Type 1 Diabetes: no 2. Hyperthyroidism: no 3. Menopause before 45: yes 4. Malnutrition: no 5. Chronic liver disease: no Rheumatoid Arthritis: no Current Tobacco Use: no RISK FACTORS HISTORY OF: Hip Fracture (Right/Left): no Spine Fracture: no History of Wrist Fracture: no Surgery to Spine/Hip(right/left)/Wrist (right/left): no Family History of Osteoporosis: no Active: yes Diet low in dairy products/other sources of calcium: yes Postmenopausal woman: yes Take estrogen and/or progesterone medications: no Lost more than 2 inches in height since high school: yes Frequent falls: no Poor Health: no Hyperparathyroidism: no Adrenal Insufficiency: no MEDICATIONS: Prednisone or other steroids: no Thyroid Medications: no Osteoporosis Medications: no Additional Medications: BP Med, Vit D, Calcium, Multi Vit, Magnesium Additional History: EXAM MEASUREMENTS: Bone mineral densitometry was performed using the [employer] System. Bone mineral density as measured about the Lumbar spine is: ----- L1-L4(G/cm2): 1.343 T Score Values are as follows: ----- L1: -0.2 ----- L2: 0.9 ----- L3: 2.3 ----- L4: 2.2 ----- L1-L4: 1.4 Z Score Values are as follows: ----- L1: 0.6 ----- L2: 1.8 ----- L3: 3.2 ----- L4: 3.1 ----- L1-L4: 2.2 Bone mineral density has:decreased -4.1 % since study of: 10/27/2017 Bone mineral density about the R hip (g/cm2): 1.168 Bone mineral density about the L hip (g/cm2): 1.154 T Score values are as follows: -----R Neck: 0.2 -----L Neck: -0.1 -----R Total: 1.3 -----L Total: 1.2 Z Score values are as follows: -----R Neck: 1.3 -----L Neck: 1.0 -----R Total: 2.1 -----L Total: 2.0 Bone mineral density has: decreased -1.9 % since study of: 10/27/2017 FRAX%s: The graph provided illustrates a 6.9% chance for a major osteoporotic fx and a 0.4% chance fo r the hips probability for fx in 10 years time. IMPRESSION: Normal (Values between +1 and -1 indicate normal bone mass). Consider repeating this study in 5 year s or sooner if there is some new clinical indication. NOTE: T-SCORE=SD OF THE YOUNG ADULT MEAN.
--- NOTE | 2023-03-04 09:26 | MM ---
Reason for Exam: Screening (asymptomatic). Last mammogram was performed 1 year(s) and 2 month(s) ago. Patient History: Menarche at age 15. First Full-Term at age 29. Postmenopausal. 12/02/2004, Core Biopsy on the Right side. 12/02/2004, MG discontinued stereo core RT on the right side. Risk Values: Abril 5 year model risk: 2.3%. NCI Lifetime model risk: 6.6%. Prior Study Comparison: 01/20/2019 Bilateral Screening Mammogram, [facility]. 04/23/2020 Bilateral Screening Mammogram, [facility]. 12/16/2021 Bilateral MG 3D screening mammo w/cad, [facility]. Tissue Density: There are scattered fibroglandular densities. Findings: Analyzed By CAD. There is no suspicious group of microcalcifications or new suspicious mass in either breast. Overall Assessment: Benign, BI-RAD 2 Management: Screening Mammogram of both breasts in 1 year. . Patient should continue monthly self-breast exams. A clinical breast exam by your physician is recommended on an annual basis. This exam should not preclude additional follow-up of suspicious palpable abnormalities. Note on Abril scores and lifetime risk: 1. A Abril score greater than 3% is considered moderate risk. If this is the case, consider specialist referral to assess eligibility for a risk reducing agent. 2. If overall lifetime risk for the development of breast cancer is 20% or higher, the patient may qualify for future screening with alternating mammogram and breast MRI. Electronically signed and approved by: Avel Hodgson M.D. Radiologis
== END | disposition home or self-care (01) ==
LOC: RADMAMWWP 15:06
PROVIDERS: ATTEND Internal Medicine Geriatric Medicine
DX: Z12.31 Encounter for screening mammogram for malignant neoplasm of breast (principal); M81.0 Age-related osteoporosis without current pathological fracture; Z78.0 Asymptomatic menopausal state
CPT/HCPCS: 77063; 77067; 77080

== ENCOUNTER → 2023-03-26 | Outpatient (CLI) | payer MEDICARE ==
--- NOTE | 2023-03-26 12:02 | P.PN ---
Subjective DATE: 03/26/2023 FOLLOW UP VISIT. Patient with obstructive sleep apnea hypopnea syndrome return to sleep center for follow-up visit. Information from previous visit have been reviewed. Patient is using PAP equipment every night for the whole night, getting PAP supplies in time. The patient does not have significant problems with the mask, PAP unit and humidification. [place] sleepiness scale is 5, which is normal. I checked information from PAP unit. PAP unit pressure 5-13, average 11.1 cm H2O. Usage is 100 % for more then 4 hours, average 7.4 hours per night. Leak is 4 l/m, which is in acceptable range. Apnea Hypopnea Index is 1.7, which is normal. MEDICATIONS:1. Triamteren/hydrochlorothiazide 37.5-25 mg once a day 2. Pregabalin 100 mg 3 times a day 3. Iron 65 mg 2 tablets weekly 4. Vitamin D3 5. Calcium 600 mg 2 tablets daily During physical exam: GENERAL: A pleasant patient without any distress. VITAL SIGNS: BP 134/77, HR 63, RR 16, weight 199.2, temperature 97.7, oxygen s aturation at room air 94 % . HEENT: PERRLA, EOMI.low position of soft palate, Mallapati 3 . NECK: Supple. No JVD. LUNGS: Clear to percussion and to auscultation. Good air exchange. No wheezing or rhonchi. HEART: S1, S2 regular. ABDOMEN: Soft and nontender.[] EXTREMITIES: No clubbing or cyanosis. GETTERER: Awake, alert, and oriented x3. No focal deficit. Impressions: 1. Obstructive sleep apnea-hypopnea syndrome. Patient demonstrated great compliance with treatment, benefiting from treatment. 2. Hypertension. 3. Status post left knee replacement. 4. Status post right arm tendon arthroplasty. 5. History of back problems with herniated disc. Plan: 1. Continue using PAP equipment every night for the whole night. 2. To change air filter at least 1-2 times per month. 3. PAP unit should stay lower then position of the head. 4. Advised patient to remove all remaining water from humidifier canister daily and make it dry after each usage. Refill canister with fresh distilled water b efore each usage. 5. Sleep hygiene with regular time in bed for at least 8 hours. 6. Precautions related to driving. No driving if feel any sleepiness. 7. I will maintain prescription for PAP supplies including mask, tube, filters. 8. Follow up visit in 6 months or earlier if patient has any problems. 9. Watching weight. Thank you very much for allowing me to participate in the management of your patient. Heraclio Pink MD, PhD, FAASM. Diplomat of [place] [employer], Sleep Medicine Board by [place] [employer] Trimmer Machine Operator of [facility] [place]
== END ==
LOC: 3 N SLEEP 11:31
PROVIDERS: ATTEND Internal Medicine
DX: G47.33 Obstructive sleep apnea (adult) (pediatric) (principal); I10 Essential (primary) hypertension; M51.9 Unspecified thoracic, thoracolumbar and lumbosacral intervertebral disc disorder; Z96.652 Presence of left artificial knee joint; Z98.890 Other specified postprocedural states; Z99.89 Dependence on other enabling machines and devices; Z79.899 Other long term (current) drug therapy
CPT/HCPCS: 99212

== ENCOUNTER → 2023-05-20 | Outpatient (CLI) | payer MEDICARE ==
--- NOTE | 2023-05-20 08:19 | US ---
EXAMINATION TYPE: US abdomen complete DATE OF EXAM: 05/20/2023 COMPARISON: NONE CLINICAL INDICATION: Female, 72 years old with history of K82.9 DISEASE OF GALLBLADDER, UNSPECIFIED; TECHNIQUE: Multiple sonographic images of the abdomen are obtained. FINDINGS: EXAM MEASUREMENTS: Liver Length: 16.2 cm Gallbladder Wall: 0.3 cm CBD: 0.5 cm Spleen: 8.8 cm Right Kidney: 12.1 x 4.1 x 4.8 cm Left Kidney: 11.9 x 5.6 x 3.8 cm LITHODUPLICATOR OPERATOR NOTES: some limitations due to overlying bowel gas Pancreas: tail gassed out, visualization portions appear wnl Liver: wnl Gallbladder: contracted fundally with possibly a large shadowing stone however could not exclude a n eoplasm Evidence for sonographic Mejia's sign: no CBD: wnl Spleen: wnl Right Kidney: wnl Left Kidney: wnl Upper IVC: wnl Abd Aorta: prox to dist appear wnl IMPRESSION: 1. Large shadowing gallstone within the mid to distal gallbladder.
== END | disposition home or self-care (01) ==
LOC: RADUSWWP 07:43
PROVIDERS: ATTEND Internal Medicine Geriatric Medicine
DX: K80.20 Calculus of gallbladder without cholecystitis without obstruction (principal); K82.9 Disease of gallbladder, unspecified
CPT/HCPCS: 76700

== ENCOUNTER → 2023-09-07 | Outpatient (CLI) | payer MEDICARE ==
[2023-09-07 12:46] LABS: African American GFR (CKD) 73 (>60 ml/min/1.73 sqM); Blood Urea Nitrogen 25 mg/dL (7-17); Non-African American GFR(CKD) 63 (>60 ml/min/1.73 sqM)
--- NOTE | 2023-09-08 10:15 | CT ---
EXAMINATION TYPE: CT abdomen pelvis w con CT DLP: 1415 mGycm, Automated exposure control for dose reduction was used. DATE OF EXAM: 09/07/2023 2:03 PM COMPARISON: Correlated with ultrasound of 05/20/2023 CLINICAL INDICATION:Female, 72 years old with history of K81.0 CHOLECYSTITIS; abdominal pain TECHNIQUE: Axial CT abdomen pelvis w con;Sagittal and coronal reformats were created on a separate w orkstation. Contrast used:100 mL of Isovue 300 with IV Contrast, (none if empty) Oral contrast used: with Oral Contrast (none if empty) FINDINGS: LOWER CHEST: Unremarkable ABDOMEN LIVER: About 5 subcentimeter liver cysts. GALLBLADDER AND BILE DUCTS: Several modest size gallstones are present within the dense calcified out er surface. No edema in the surrounding fat of the gallbladder fossa. No intrahepatic or extrahepati c biliary ductal dilatation. PANCREAS: Unremarkable. SPLEEN: Unremarkable. ADRENAL GLANDS: Unremarkable. KIDNEYS AND URETERS: No evidence of hydronephrosis or renal calculus. The ureters are unremarkable. PELVIS BLADDER: Unremarkable REPRODUCTIVE: Unremarkable. ABDOMEN & PELVIS STOMACH AND BOWEL: No evidence of bowel obstruction. PERITONEUM/RETROPERITONEUM: No evidence of pneumoperitoneum or free fluid. VASCULATURE: No evidence of aortic aneurysm. MUSCULOSKELETAL: No acute osseous abnormalities LYMPH NODES: No gross evidence for lymphadenopathy. SOFT TISSUE/ABDOMINAL WALL: Unremarkable IMPRESSION: 1. Cholelithiasis without evidence of cholecystitis.
== END | disposition home or self-care (01) ==
LOC: RADCTMAIN 12:08
PROVIDERS: ATTEND Surgery
DX: K80.20 Calculus of gallbladder without cholecystitis without obstruction (principal)
CPT/HCPCS: 82565; 84520; 74177; 36415; Q9967

== ENCOUNTER → 2023-11-05 | Outpatient (CLI) | payer MEDICARE ==
[2023-11-05 14:35] VITALS: BP 153/84; PULSE 56; RESP 14; TEMP 97.7
--- NOTE | 2023-11-05 14:53 | P.PROGSL ---
Subjective DATE: 11/05/2023 FOLLOW UP VISIT. Patient with obstructive sleep apnea hypopnea syndrome return to sleep center for follow-up visit. Information from previous visit have been reviewed. Patient is using PAP equipment every night for the whole night, getting PAP supplies in time. The patient does not have significant problems with the mask, PAP unit and humidification. [place] sleepiness scale is 7, which is normal. I checked information from PAP unit. PAP unit pressure 5-13, average 11.7 cm H2O. Usage is 100% for more then 4 hours, average 7.4 hours per night. Leak is 7 l/m, which is in acceptable range. Apnea Hypopnea Index is 1.2, which is normal. MEDICATIONS: Please see below During physical exam: GENERAL: A pleasant patient without any distress. VITAL SIGNS: Please see below, weight 203.6 pounds, BMI 31.7. HEENT: PERRLA, EOMI.low position of soft palate, Mallapati 3 . NECK: Supple. No JVD. LUNGS: Clear to percussion and to auscultation. Good air exchange. No wheezing or rhonchi. HEART: S1, S2 regular. ABDOMEN: Soft and nontender.[] EXTREMITIES: No clubbing or cyanosis. SUPERVISOR WATERPROOFING: Awake, alert, and oriented x3. No focal deficit. Impressions: 1. Obstructive sleep apnea-hypopnea syndrome. Patient demonstrated great compliance with treatment, benefiting from treatment. 2. Hypertension. 3. Status post left knee replacement. 4. History of back problems related to herniated disc. 5. Status post right arm tendon arthroplasty. Plan: 1. Continue using PAP equipment every night for the whole night. 2. To change air filter at least 1-2 times per month. 3. PAP unit should stay lower then position of the head. 4. Advised patient to remove all remaining water from humidifier canister daily and make it dry after each usage. Refill canister with fresh distilled water before each usage. 5. Sleep hygiene with regular time in bed for at least 8 hours. 6. Precautions related to driving. No driving if feel any sleepiness. 7. I will maintain prescription for PAP supplies including mask, tube, filters. 8. Watching weight. 9. Follow up visit in 6 months or earlier if patient has any problems. 10. Prescription for travel CPAP unit, if patient will decide to use it. Thank you very much for allowing me to participate in the management of your patient. Heraclio Pink MD, PhD, FAASM. Diplomat of [place] [employer], Sleep Medicine Board by [place] [employer] Air Sampling And Monitoring of [facility] [place] Objective - Vital Signs Vital Signs: Vital Signs Temp 97.7 F 11/05/23 14:34 Pulse 56 L 11/05/23 14:34 Resp 14 11/05/23 14:34 BP 153/84 11/05/23 14:34 Pulse Ox 96 11/05/23 14:34 FiO2 Intake & Output 11/04/23 11/05/23 11/05/23 18:59 06:59 18:59 Weight 92.249 kg Home Medications: Home Medications Medication Instructions Recorded Confirmed Type Calcium Carbonate [Calcium] 600 mg PO BID 02/11/19 11/05/23 History Cholecalciferol (Vitamin D3) 50 mcg PO DAILY 02/11/19 11/05/23 History [Vitamin D3] Multivitamins, Thera [Multivitamin 1 tab PO DAILY 02/11/19 11/05/23 History (formulary)] Potassium 99 mg PO DAILY 02/11/19 03/20/22 History Triamterene-Hctz 37.5-25Mg 1 cap PO DAILY 02/11/19 11/05/23 History [Dyazide 37.5-25 Capsule] Cinnamon Bark [Cinnamon] 2,000 mg PO BID 06/08/20 03/20/22 History Glucosam/Sixto-Msm1/C/Ziyad/Bosw 2 each PO DAILY 06/08/20 11/05/23 History [Glucosamine-Chondroitin Tablet] Turmeric Root Extract [Turmeric] 1,000 mg PO DAILY 06/08/20 03/20/22 History Ferrous Sulfate [Iron (65 MG 18 mg PO DAILY 07/03/20 11/05/23 History Elemental)] Pregabalin [Lyrica] 100 mg PO TID 07/03/20 11/05/23 History Collagen 1000 6,000 mg PO DAILY 01/18/21 11/05/23 History Magnesium 400 mg PO DAILY 01/18/21 11/05/23 History Ubidecarenone [Co Q-10] 300 mg PO DAILY 01/18/21 11/05/23 History Ascorbic Acid [Vitamin C] 1,000 mg PO DAILY 04/18/21 11/05/23 History Chlorhexidine Gluconate [Periogard] 15 ml PO BID 04/18/21 03/20/22 History Cyanocobalamin (Vitamin B-12) 5,000 mcg PO DAILY 04/18/21 11/05/23 History [Vitamin B-12] Triamcinolone 0.5% Cream [Kenalog 1 applic TOPICAL BID PRN 04/18/21 03/20/22 History 0.5% Cream] Vitamin E (Dl,Tocopheryl Acet) 180 unit PO DAILY 04/18/21 11/05/23 History [Vitamin E] Sennosides-Docusate Sodium 1 tab PO BID #60 tablet 04/22/21 03/20/22 Rx [Senokot-S] Cyclobenzaprine [Flexeril] 5 mg PO HS PRN 30 Days #45 tab 03/20/22 Rx L.acidoph,Paracasei, B.lactis 1 each PO DAILY 11/05/23 11/05/23 History [Probiotic] Meloxicam 7.5 mg PO DAILY 11/05/23 11/05/23 History Rosuvastatin Calcium [Crestor] 5 mg PO DAILY 11/05/23 11/05/23 History Vitamin C/Biotin [Hair, Skin and PO DAILY 11/05/23 History Nails Chew]
== END ==
LOC: 3 N SLEEP 14:00
PROVIDERS: ATTEND Internal Medicine
DX: G47.33 Obstructive sleep apnea (adult) (pediatric) (principal); I10 Essential (primary) hypertension; Z96.652 Presence of left artificial knee joint; Z87.39 Personal history of other diseases of the musculoskeletal system and connective tissue; Z98.890 Other specified postprocedural states; Z99.89 Dependence on other enabling machines and devices; Z79.899 Other long term (current) drug therapy
CPT/HCPCS: 99212

== ENCOUNTER → 2024-05-10 | Outpatient (CLI) | payer MEDICARE ==
--- NOTE | 2024-05-10 09:20 | MM ---
Reason for Exam: Screening (asymptomatic). Last mammogram was performed 1 year(s) and 2 month(s) ago. Patient History: Menarche at age 15. First Full-Term at age 29. Postmenopausal. 12/02/2004, Core Biopsy on the Right side. 12/02/2004, MG discontinued stereo core RT on the right side. Risk Values: Abril 5 year model risk: 2.3%. NCI Lifetime model risk: 6.3%. Prior Study Comparison: 04/23/2020 Bilateral Screening Mammogram, [facility]. 12/16/2021 Bilateral MG 3D screening mammo w/cad, [facility]. 03/02/2023 Bilateral MG 3D screening mammo w/cad, [facility]. Tissue Density: There are scattered areas of fibroglandular density. Findings: Analyzed By CAD. There is no suspicious group of microcalcifications or new suspicious mass in either breast. Stable benign-appearing chronic nodularity. Overall Assessment: Benign, BI-RAD 2 Management: Screening Mammogram of both breasts in 1 year. . Patient should continue monthly self-breast exams. A clinical breast exam by your physician is recommended on an annual basis. This exam should not preclude additional follow-up of suspicious palpable abnormalities. Note on Abril scores and lifetime risk: 1. A Abril score greater than 3% is considered moderate risk. If this is the case, consider specialist referral to assess eligibility for a risk reducing agent. 2. If overall lifetime risk for the development of breast cancer is 20% or higher, the patient may qualify for future screening with alternating mammogram and breast MRI. [facility], , 05/10/2024 9:17 AM. Electronically signed and approved by: Bernabe Yuen M.D. Radiologis
== END | disposition home or self-care (01) ==
LOC: RADMAMWWP 07:31
PROVIDERS: ATTEND Internal Medicine Geriatric Medicine
DX: Z12.31 Encounter for screening mammogram for malignant neoplasm of breast (principal); Z78.0 Asymptomatic menopausal state; R92.323 Mammographic fibroglandular density, bilateral breasts
CPT/HCPCS: 77063; 77067